=== PATIENT | male | born 1945 | race Caucasian/White ===

== ENCOUNTER 2020-12-11 07:18 | Day surgery (SDC) | payer OTHER, MEDICARE ==
--- NOTE | 2020-12-06 16:20 | RAD REPORT ---
EXAM DESCRIPTION: Grayson Mcgraw (2 Views)12/06/2020 4:13 pm CLINICAL HISTORY: Preop/abdominal pain COMPARISON: None FINDINGS: The lungs appear clear of acute infiltrate. The heart is normal size IMPRESSION: No acute abnormalities displayed
[2020-12-06 16:43] LABS: Absolute Lymphocytes (CBC) 2.4 K/uL (0.7-4.9); Basophils % 0.4 % (0-1.3); Hematocrit 40.7 % (39.6-49.0); Lymphocytes % 31.5 % (15.3-44.8); MPV 9.1 fL (7.6-11.3); RBC Red Blood Cell Count 4.48 M/uL (4.33-5.43)
[2020-12-06 16:49] LABS: Potassium 4.9 mmol/L (3.5-5.1)
[2020-12-06 19:17] LABS: Protime INR 1.03
--- NOTE | 2020-12-07 14:11 | EKG ---
Test Date: 2020-12-06 Test Time: 16:01:15 Foot Doctor: CASS MEASUREMENT RESULTS: Intervals: Rate: 59 AL: 222 QRSD: 104 QT: 400 QTc: 396 [place]: P: 36 AL: 222 QRS: -34 T: 58 INTERPRETIVE STATEMENTS: Sinus bradycardia with 1st degree AV block with premature atrial complexes Left axis deviation Pulmonary disease pattern Incomplete right bundle branch block Abnormal ECG Compared to ECG 07/07/2016 13:17:52 Atrial premature complex(es) now present First degree AV block now present Incomplete right bundle-branch block now present Electronically Signed On 12-07-20 14:09:07 REAL ESTATE TEACHER by Abimael Mejía
[2020-12-11] MEDS ORDERED: CEFAZOLIN/SWI 2gm 2 GM/20 ML SYR ONE (08:07)
[2020-12-11] MEDS ORDERED: NA CHLORIDE 0.9% 1,000 ML ONE ×2 (08:07→11:01)
[2020-12-11] MEDS ORDERED: propofoL 200 MG/20 ML VIAL IV ONE (08:27)
[2020-12-11] MEDS ORDERED: FENTANYL CITR 100 MCG/2 ML ONE (08:27)
[2020-12-11] MEDS ORDERED: LIDOCAINE 1% MPF 5 ML VIAL ONE (08:28)
[2020-12-11] MEDS ORDERED: ONDANSETRON 4 MG/2 ML VIAL ONE (08:28)
[2020-12-11] MEDS ORDERED: EPHEDRINE SULF 50 MG/ML VIAL ONE (10:44)
[2020-12-11] MEDS ORDERED: GLYCOPYRROLATE 0.2 MG/ML SYR ONE (11:33)
[2020-12-11 12:04] VITALS: TEMP 96.9
--- NOTE | 2020-12-11 13:02 | OP ---
Surgeon: SARAHI ESPARZA Preoperative Diagnosis: Left 14 mm nephrolithiasis. Postoperative Diagnosis: Left 14 mm nephrolithiasis. Principle Procedure: 1.Cystoscopy, left ureteral stent placement. 2.Left extracorporeal shock wave lithotripsy. Indication For Procedure: Mr. Mayes presented to the Urology Clinic with intermittent recurrent jes ss hematuria associated with the presence of a very large left renal calculus. No intravesical lesio n was noted or other intrarenal filling defect on imaging; so he was counseled as to the benefit of E SWL to attempt to fragment. The calculus and decreases risk of future renal injury and potentially r ecurrent gross hematuria. Procedure In Detail: The patient was consented in the preoperative holding area before being transfe rred to the operative suite where general anesthesia was induced. He was given Ancef 2 g, IV antimic robial prophylaxis, and pneumo boots were provided for DVT prophylaxis. He was placed in the lithoto my position, padded and secured to the table appropriately. His genitalia were prepped using Hibicle ns, and he was draped in standard fashion. The case was begun using a 22-Austrian rigid cystoscope to traverse the urethra and into the bladder with ease. Using a 5-Austrian ureteral access catheter and a Sensor wire, the left ureteral orifice was cannulated and a wire was advanced via the ureter into th e upper pole of the kidney as visualized fluoroscopically alongside, the radiopaque 14 mm calculus in the renal pelvis. I was then able to pass a 6-Austrian x 26 cm double-J left ureteral stent over the wire into the upper pole of the kidney with a coil observed fluoroscopically there and 1 cystoscopica lly within the bladder. His bladder was then decompressed of fluid and urine, and the scope was kavon maryjane. He was then repositioned and fluoroscopic targeting of the stone was then performed before init iating shockwave lithotripsy. Left ESWL: Initiating the shocks at low power settings and slowly increasing the power over the cour se of approximately 400-500 shocks, shockwave lithotripsy was initiated. The patient had some ventri cular ectopy associated with the shockwave lithotripsy and so he was then gated to the EKG 2 time tracee cks with his heart rate. Once this was done, the ectopy resolved and the shockwave lithotripsy brayan nued. Over the course of the next 1000 shocks, there was some evident fragmentation of the stone wit h decrease in the diameter of stone burden remaining within the kidney. However, a core of the stone approximately 8 or 9 mm was still evident. As a result, retargeting was performed and we continued to increase the power up to 7.0, and continued to stop the stone to further attempt to fragmented. T here was significant dissolution of the stone. While at the end of the procedure, there was still a slight density present, probably 5-6 mm in diameter. The patient was then awakened from general anes thesia, transferred to a stretcher, and then transferred to the recovery room in good condition. Complications: No complications were evident. Discharge Disposition: He will follow up in the Urology Clinic with nurse practitioner, [place] in approximately 2 weeks time and I have asked him to obtain a KUB 1-2 days prior to assess for visibili ty of stone burden. I further asked him to strain his urine to see if he collect any stone dust joyce gnizing that much of it may not pass until after the stent was removed. Once the stone is evidently fragmented with no significant residual stone burden in the kidney, i.e, no stone larger than 4 or 5 mm remnant, he should then return to [place] for cystoscopy and left ureteral stent extraction in the offi ce. If significant residual stone density is present, we may need to plan definitive ureteroscopy an d laser lithotripsy to clear him of the stone burden. I would likely only do this for a stone larger than about 4 mm size in diameter. KARIE/MODL Voice ID: [id number] Report ID: [id number]
[2020-12-11 13:05] VITALS: BP 143/74; O2SAT 97
== END 2020-12-11 12:40 | disposition home or self-care (01) ==
LOC: OR 07:18
PROVIDERS: ATTEND Urology
PROC: 0T778DZ Dilation of Left Ureter with Intraluminal Device, Via Natural or Artificial Opening Endoscopic (ICD-10-PCS; 2020-12-11)
PROC: 0TF7XZZ Fragmentation in Left Ureter, External Approach (ICD-10-PCS; principal; 2020-12-11 09:00)
DX: N20.0 Calculus of kidney (principal); Z20.822 Contact with and (suspected) exposure to COVID-19
CPT/HCPCS: 52332 ×2; 93005; 87088; 85025; 87086; 80048; 36415; 85610; 82947 ×2; 85730; 71046; 50590; U0002; J2704; J3010; J0690; J7030 ×2; J2405

== ENCOUNTER 2020-12-17 16:06 | Emergency (ER) | payer OTHER, MEDICARE ==
--- OUTSIDE RECORDS SUMMARY | 2020-12-17 16:09 | XMS REPORT | Continuity of Care Document ---
:1945 Author Organization [facility] t Address [address] [place] [address] Care Team Providers Name Role Phone Unavailable Unavailable Unavailable Problems This patient has no known problems. Allergies, Adverse Reactions, Alerts This patient has no known allergies or adverse reactions. Medications This patient has no known medications. Procedures This patient has no known procedures. Results This patient has no known results.
[2020-12-17 19:28] LABS: Absolute Lymphocytes (CBC) 2.6 K/uL (0.7-4.9); Basophils % 0.4 % (0-1.3); Hematocrit 46.2 % (39.6-49.0); Lymphocytes % 31.2 % (15.3-44.8); MPV 8.7 fL (7.6-11.3); RBC Red Blood Cell Count 5.07 M/uL (4.33-5.43)
[2020-12-17 19:51] LABS: Albumin 4.2 g/dL (3.4-5.0); Bilirubin Direct 0.2 mg/dL (0-0.2); Bilirubin Total 0.9 mg/dL (0.2-1.0); Protein, Total 7.9 g/dL (6.4-8.2)
[2020-12-17] MEDS ORDERED: NA CHLORIDE 0.9% 500 ML ONE (20:14)
[2020-12-17 20:31] LABS: Urine Bacteria NONE SEEN /HPF (NONE SEEN)
--- NOTE | 2020-12-17 20:32 | RAD REPORT ---
EXAM DESCRIPTION: US - Abdomen Exam Limited - 12/17/2020 8:21 pm CLINICAL HISTORY: elevated lipase COMPARISON: Renal Ultrasound-Complete dated 12/17/2020 FINDINGS: The gallbladder demonstrates no gallstones. No pericholecystic fluid or gallbladder wall t hickening. The common bile duct is normal measuring 2 mm. The liver demonstrates no findings of intrahepatic biliary dilatation. IMPRESSION: Unremarkable examination.
[2020-12-17 20:42] LABS: Urine Blood 2+ (NEG); Urine Glucose NEGATIVE (NEG); Urine Protein NEGATIVE (NEG)
--- NOTE | 2020-12-17 21:04 | RAD REPORT ---
EXAM DESCRIPTION: CTAbdomen Pelvis W Contrast - 12/17/2020 8:42 pm CLINICAL HISTORY: Abdominal pain. ABD PAIN COMPARISON: <Comparisons> TECHNIQUE: Biphasic CT imaging of the abdomen and pelvis was performed with 100 ml non-ionic IV cont rast. All CT scans are performed using dose optimization technique as appropriate and may include automated exposure control or mA/KV adjustment according to patient size. FINDINGS: The lung bases are clear. The liver, spleen, pancreas, adrenal glands are within normal limits. Bilateral renal cysts are seen. Small calculi are present in calices of both kidneys. Left double-J s tent is place. Small 4 mm calculus is present along the distal aspect of the stent. Additional calcif ied debris is present in the distal aspect of the left ureter along the stent. There is slight fat st randing seen about the left renal pelvis. No bowel obstruction, free air, free fluid or abscess. Sigmoid diverticulosis coli is present without diverticulitis. The appendix is normal. No evidence of significant lymphadenopathy. No suspicious bony findings. IMPRESSION: Left double-J stent is in place with small calcific stone and debris along the distal le ft ureter course of the stent. Subtle fat stranding is seen about the renal pelvis. Urinalysis correl ation for is a possibility urinary tract infection is suggested. Additional bilateral punctate caliceal nephrolithiasis.
--- NOTE | 2020-12-17 21:26 | EDPHYS ---
Physician Documentation [facility] Name: Petar Mayes Age: 74 yrs Sex: Male : 1945 Arrival Date: 12/17/2020 Time: 16:09 Bed 26 Private MD: Don Rivas B ED Physician Piero Heard HPI: 12/17 19:12 This 74 yrs old Male presents to ER via Ambulatory with complaints of pm1 Abnormal Lab Results. 19:12 Patient instructed to report to the ER for further evaluation and treatment of abnormal pm1 labs drawn by his urologist this afternoon. Patient with lithotripsy [address] Ghosh. Reports since the lithotripsy, the patient has felt fatigued and with generalized weakness. Dr. Ghosh had some labs drawn today at this hospital and called the patient to report to the ER for possible pancreatitis. The patient does not have any abdominal pain, back pain, chest pain, shortness of breath, fever, n/v/d. Historical: - Allergies: 16:23 No Known Drug Allergies; ll1 - Home Meds: 19:31 levothyroxine oral [Active]; lisinopril 10 mg Oral tab 1 tab once daily [Active]; sf Metformin Oral [Active]; Simvastatin Oral [Active]; - PMHx: 16:23 Diabetes - NIDDM; Hyperlipidemia; Hypertension; Kidney stones; TIA; ll1 19:31 Hypothyroidism; sf - PSHx: 16:23 Lithotripsy; ll1 - Immunization history:: Flu vaccine is up to date. - Social history:: Smoking status: Patient denies any tobacco usage or history of. ROS: 19:12 Cardiovascular: Negative for chest pain, palpitations, and edema, Respiratory: Negative pm1 for shortness of breath, cough, wheezing, and pleuritic chest pain. 19:12 Back: Negative for injury and pain, : Negative for injury, bleeding, discharge, and swelling, MS/Extremity: Negative for injury and deformity, Skin: Negative for injury, rash, and discoloration. 19:12 Constitutional: Positive for fatigue, Negative for body aches, chills, poor PO intake. 19:12 Abdomen/GI: Negative for abdominal pain, nausea, vomiting, and diarrhea, constipation. 19:12 Neuro: Positive for generalized weakness, Negative for headache, numbness, tingling, focal weakness. Exam: 19:12 Constitutional: This is a well developed, well nourished patient who is awake, alert, pm1 and in no acute distress. Head/Face: Normocephalic, atraumatic. 19:12 Back: No spinal tenderness. No costovertebral tenderness. Full range of motion. Skin: Warm, dry with normal turgor. Normal color with no rashes, no lesions, and no evidence of cellulitis. MS/ Extremity: Pulses equal, no cyanosis. Neurovascular intact. Full, normal range of motion. 19:12 Cardiovascular: Exam negative for acute changes, Rate: normal, Rhythm: regular, Pulses: no pulse deficits are appreciated, Edema: is not appreciated. 19:12 Respiratory: Exam negative for acute changes, respiratory distress, shortness of breath. 19:12 Abdomen/GI: Inspection: abdomen appears normal, Palpation: abdomen is soft and non-tender, in all quadrants, mass, is not appreciated. 19:12 Neuro: Exam negative for acute changes, Orientation: is normal, Mentation: is normal, Motor: is normal, moves all fours. Vital Signs: 16:19 BP 152 / 89; Pulse 70; Resp 16; Temp 97.2; Pulse Ox 100% ; Weight 84.82 kg; Height 5 ll1 ft. 9 in. (175.26 cm); Pain 2/10; 20:00 BP 173 / 119; Pulse 82; Resp 16; Pulse Ox 100% ; sf 16:19 Body Mass Index 27.61 (84.82 kg, 175.26 cm) ll1 MDM: 19:15 Patient medically screened. lindsey 20:58 Data reviewed: vital signs. Data interpreted: Pulse oximetry: on room air is 100 %. pm1 Interpretation: normal. 21:24 Counseling: I had a detailed discussion with the patient and/or guardian regarding: the pm1 historical points, exam findings, and any diagnostic results supporting the discharge/admit diagnosis, lab results, radiology results, the need for outpatient follow up, to return to the emergency department if symptoms worsen or persist or if there are any questions or concerns that arise at home. 21:24 ED course: Patient does not want a COVID or flu test here in the ER that may explain pm1 his fatigue and generalized weakness. He does not want it because he had a negative covid test recently for his lithotripsy procedure. . 21:28 ED course: Patient's lipase from 1452 today was 1472. Current lipase is 785. Lipase pm1 improved markedly without intervention. Patient without any pain to chest, back, abdomen or flank. Pancreas within normal limits on CT and gallbladder and biliary ducts within normal limits on U/S. No UTI present and patient is currently taking abx from [place]. Patient can be discharged home to follow up with PCP or urologist. 12/17 19:08 Order name: Basic Metabolic Panel; Complete Time: 20:16 pm1 12/17 19:08 Order name: CBC with Diff; Complete Time: 20:16 pm1 12/17 19:08 Order name: Hepatic Function; Complete Time: 20:16 pm1 12/17 19:08 Order name: Lipase; Complete Time: 20:16 pm1 12/17 19:18 Order name: Urine Microscopic Only; Complete Time: 20:36 pm1 12/17 20:34 Order name: Urine Dipstick--Ancillary (enter results); Complete Time: 20:49 [facility] 12/17 19:08 Order name: IV Saline Lock; Complete Time: 19:23 pm1 12/17 19:08 Order name: Labs collected and sent; Complete Time: 19:23 pm1 12/17 19:08 Order name: CT Abd/Pelvis - IV Contrast Only; Complete Time: 21:06 pm1 12/17 19:24 Order name: US Abdomen Limited; Complete Time: 20:36 pm1 12/17 20:43 Order name: Urine Culture [facility] 12/17 19:18 Order name: Urine Dipstick-Ancillary (obtain specimen); Complete Time: 20:05 pm1 Administered Medications: 19:14 CANCELLED (Physician Discretion): morphine 4 mg IVP once; RASS on ADMIN: Combtv4, Very pm1 Agttd3, Agttd2, Rstlss1, AlertClm0, Drwsy-1, Lt Sdtn-2, Mod Sdtn-3, Dp Sdtn-4, UnArsble-5 19:14 CANCELLED (Physician Discretion): Zofran (Ondansetron) 4 mg IVP once; over 2 minutes pm1 19:58 Drug: NS 0.9% 500 ml Route: IV; Rate: bolus; Site: right antecubital; sf 21:00 Follow up: IV Status: Completed infusion; IV Intake: 500ml sf 21:29 Follow up: Response: No adverse reaction sf Disposition: 12/18 06:44 Co-signature as Attending Physician, Piero Heard MD I agree with the assessment and [facility] plan of care. Disposition: 12/17/20 21:25 Discharged to Home. Impression: Abnormal findings on examination of blood, without diagnosis. - Condition is Stable. - Medication Reconciliation Form, Thank You Letter, Antibiotic Education, Prescription Opioid Use form. - Follow up: Emergency Department; When: As needed; Reason: Worsening of condition. Follow up: Private Physician; When: 2 - 3 days; Reason: Recheck today's complaints, Continuance of care, Re-evaluation by your physician. - Problem is new. - Symptoms have improved. Signatures: Dispatcher [employer] Piero Villatoro, Ryan Messer MD, cha, REGISTERED DIET TECHNICIAN REGISTERED DIET TECHNICIAN pm1 Cesilia Conti RN RN 1 Leandro Coleman RN RN sf Corrections: (The following items were deleted from the chart) 12/17 19:14 19:08 morphine 4 mg IVP once; RASS on ADMIN: Combtv4, Very Agttd3, Agttd2, Rstlss1, pm1 AlertClm0, Drwsy-1, Lt Sdtn-2, Mod Sdtn-3, Dp Sdtn-4, UnArsble-5 ordered. pm1 19:14 19:08 Zofran (Ondansetron) 4 mg IVP once; over 2 minutes ordered. pm1 pm1 21:28 21:25 12/17/2020 21:25 Discharged to Home. Impression: Other specified abnormal pm1 findings of blood chemistry. Condition is Stable. Forms are Medication Reconciliation Form, Thank You Letter, Antibiotic Education, Prescription Opioid Use. Follow up: Emergency Department; When: As needed; Reason: Worsening of condition. Follow up: Private Physician; When: 2 - 3 days; Reason: Recheck today's complaints, Continuance of care, Re-evaluation by your physician. Problem is new. Symptoms have improved. pm1 21:38 21:28 12/17/2020 21:25 Discharged to Home. Impression: Abnormal findings on examination sf of blood, without diagnosis. Condition is Stable. Forms are Medication Reconciliation Form, Thank You Letter, Antibiotic Education, Prescription Opioid Use. Follow up: Emergency Department; When: As needed; Reason: Worsening of condition. Follow up: Private Physician; When: 2 - 3 days; Reason: Recheck today's complaints, Continuance of care, Re-evaluation by your physician. Problem is new. Symptoms have improved. pm1
--- NOTE | 2020-12-17 21:26 | ER ---
Nurse's Notes [facility] Name: Petar Mayes Age: 74 yrs Sex: Male : 1945 Arrival Date: 12/17/2020 Time: 16:09 Bed 26 Private MD: Don Rivas B Diagnosis: Abnormal findings on examination of blood, without diagnosis Presentation: 12/17 16:19 Chief complaint: Patient states: Hasn't been feeling well since last after ll1 lithotripsy. Had blood drawn today for fatigue, weakness, just not feeling well since. Had blood drawn through his doctor today, was told to come to ED for possible pancreatitis. Coronavirus screen: Client denies travel out of the [place] in the last 14 days. At this time, the client does not indicate any symptoms associated with coronavirus-19. Ebola Screen: Patient denies travel to an Ebola-affected area in the 21 days before illness onset. Initial Sepsis Screen: Does the patient meet any 2 criteria? No. Patient's initial sepsis screen is negative. Does the patient have a suspected source of infection? No. Patient's initial sepsis screen is negative. Risk Assessment: Do you want to hurt yourself or someone else? Patient reports no desire to harm self or others. Onset of symptoms was December 11, 2020. 16:19 Method Of Arrival: Ambulatory [facility] 16:19 Acuity: GENNARO 3 ll1 Historical: - Allergies: 16:23 No Known Drug Allergies; ll1 - Home Meds: 19:31 levothyroxine oral [Active]; lisinopril 10 mg Oral tab 1 tab once daily [Active]; sf Metformin Oral [Active]; Simvastatin Oral [Active]; - PMHx: 16:23 Diabetes - NIDDM; Hyperlipidemia; Hypertension; Kidney stones; TIA; ll1 19:31 Hypothyroidism; sf - PSHx: 16:23 Lithotripsy; ll1 - Immunization history:: Flu vaccine is up to date. - Social history:: Smoking status: Patient denies any tobacco usage or history of. Screenin:10 Abuse screen: Denies threats or abuse. Denies injuries from another. Nutritional sf screening: No deficits noted. Tuberculosis screening: No symptoms or risk factors identified. Never had TB. Possible symptoms: None Risk factors: None. Fall Risk None identified. No fall in past 12 months (0 pts). No secondary diagnosis (0 pts). IV access (20 points). Ambulatory Aid- None/Bed Rest/Nurse Assist (0 pts). Gait- Normal/Bed Rest/Wheelchair (0 pts) Mental Status- Oriented to own ability (0 pts). Total Davila Fall Scale indicates No Risk (0-24 pts). Assessment: 19:10 General: Appears in no apparent distress. comfortable, Behavior is calm, cooperative, sf appropriate for age, Denies feeling ill. Pain: Denies pain. Neuro: No deficits noted. Level of Consciousness is awake, alert, obeys commands, Oriented to person, place, time, situation. Cardiovascular: No deficits noted. Patient's skin is warm and dry. Respiratory: No deficits noted. Airway is patent Respiratory effort is even, unlabored, Respiratory pattern is regular, symmetrical. GI: No deficits noted. Abdomen is non-distended, Patient currently denies abdominal pain, diarrhea, nausea, vomiting. : Reports burning with urination, due to renal stent. Vital Signs: 16:19 BP 152 / 89; Pulse 70; Resp 16; Temp 97.2; Pulse Ox 100% ; Weight 84.82 kg; Height 5 ll1 ft. 9 in. (175.26 cm); Pain 2/10; 20:00 BP 173 / 119; Pulse 82; Resp 16; Pulse Ox 100% ; sf 16:19 Body Mass Index 27.61 (84.82 kg, 175.26 cm) ll1 ED Course: 16:09 Patient arrived in ED. mr 16:10 Don Rivas MD is Private Physician. mr 16:23 Triage completed. ll1 16:24 Arm band placed on. ll1 19:05 Ryan Cole NP is PHCP. pm1 19:05 Piero Heard MD is Attending Physician. pm1 19:09 Leandro Coleman RN is Primary Nurse. sf 19:10 Patient has correct armband on for positive identification. Bed in low position. Call sf light in reach. Pulse ox on. NIBP on. Door closed. Noise minimized. Visitors limited. Verbal reassurance given. 19:15 Initial lab(s) drawn, by me, sent to lab. Inserted saline lock: 20 gauge in right sf antecubital area, using aseptic technique. Blood collected. 20:00 Urine collected: clean catch specimen, clear. sf 20:15 US Abdomen Limited Sent. sf 20:22 US Abdomen Limited In Process Unspecified. EDMS 20:41 CT Abd/Pelvis - IV Contrast Only In Process Unspecified. EDMS 21:29 No provider procedures requiring assistance completed. sf 21:38 IV discontinued, intact, bleeding controlled, No redness/swelling at site. Pressure sf dressing applied. Administered Medications: 19:14 CANCELLED (Physician Discretion): morphine 4 mg IVP once; RASS on ADMIN: Combtv4, Very pm1 Agttd3, Agttd2, Rstlss1, AlertClm0, Drwsy-1, Lt Sdtn-2, Mod Sdtn-3, Dp Sdtn-4, UnArsble-5 19:14 CANCELLED (Physician Discretion): Zofran (Ondansetron) 4 mg IVP once; over 2 minutes pm1 19:58 Drug: NS 0.9% 500 ml Route: IV; Rate: bolus; Site: right antecubital; sf 21:00 Follow up: IV Status: Completed infusion; IV Intake: 500ml sf 21:29 Follow up: Response: No adverse reaction sf Intake: 21:00 IV: 500ml; Total: 500ml. sf Outcome: 21:25 Discharge ordered by MD. pm1 21:38 Discharged to home ambulatory. sf 21:38 Condition: stable 21:38 Discharge instructions given to patient, Instructed on discharge instructions, follow up and referral plans. Demonstrated understanding of instructions, follow-up care. 21:38 Patient left the ED. sf Signatures: Dispatcher [employer] [facility] Diamond Mosquera DouglasRyan, SHIRT IRONER SHIRT IRONER pm1 Cesilia Conti, GARY RN ll1 Leandro Coleman, GARY RN sf Corrections: (The following items were deleted from the chart) 16:48 16:19 Pulse 70bpm; Resp 16bpm; Pulse Ox 100%; Temp 97.2F; 84.82 kg; Height 5 ft. 9 in.; ll1 BMI: 27.6; Pain 2/10; ll1 21:29 21:28 IV Status: Completed infusion; IV Intake: 500ml sf sf
[2020-12-17 22:09] VITALS: TEMP 97.2; O2SAT 100
[2020-12-17 22:10] VITALS: BP 173/119
== END 2020-12-17 21:38 | disposition home or self-care (01) ==
LOC: ER 16:06
DX: R79.9 Abnormal finding of blood chemistry, unspecified (principal); Z98.890 Other specified postprocedural states; I10 Essential (primary) hypertension; E11.9 Type 2 diabetes mellitus without complications; E03.9 Hypothyroidism, unspecified; E78.5 Hyperlipidemia, unspecified
CPT/HCPCS: 87088; 85025; 87086; 80048; 36415; 80076; 83690; 74177; 76705; 96360; 99284; Q9967; J7040; 81003; 81015

== ENCOUNTER 2024-02-19 04:09 | Observation (INO) | payer MEDICARE, OTHER ==
[2024-02-19] MEDS ORDERED: DIPHENHYDRAMINE 50 MG/ML VIAL ONE (04:26)
[2024-02-19] MEDS ORDERED: METOCLOPRAMIDE 10 MG/2mL INJ ONE (04:26)
[2024-02-19 04:55] LABS: Absolute Eosinophils 0.1 K/uL (0-0.5); Absolute Lymphocytes (CBC) 1.3 K/uL (0.7-4.9); Absolute Monocytes 0.5 K/uL (0.1-1.3); Absolute Neutrophil 5.2 K/uL (1.8-8.0); Basophils % 0.3 % (0-1.3); Eosinophils % 0.7 % (0-4.4); Hemoglobin 12.3 g/dL (13.6-17.9); Lymphocytes % 17.9 % (15.3-44.8); MCH 30.9 pg (27.0-35.0); MCHC 34.1 g/dL (32.0-36.0); MCV 90.8 fL (80-100); MPV 7.9 fL (7.6-11.3); Monocytes % 6.5 % (3.3-12.3); Neutrophils % 74.6 % (41.7-73.7); Platelets 124 thou/uL (152-406); RBC Red Blood Cell Count 3.96 M/uL (4.33-5.43); Red Cell Distribution Width 14.4 % (12.1-15.2)
[2024-02-19 05:14] LABS: PT Prothrombin Time 13.5 SECONDS (9.5-12.5); PTT, Activated Partial Thromb 32.3 SECONDS (24.3-36.9); Protime INR 1.23
[2024-02-19 05:17] LABS: Albumin 3.2 g/dL (3.4-5.0); Albumin/Globulin Ratio 1.3 (1.1-1.8); Anion Gap 10.4 mEq/L (5.0-15.0); Bilirubin Direct 0.2 mg/dL (0-0.2); Bilirubin Indirect, Calculated 0.4 mg/dL (0.2-0.8); Bilirubin Total 0.6 mg/dL (0.2-1.0); Globulin 2.5 g/dL (2.3-3.5); Magnesium 1.7 mg/dL (1.6-2.4); Potassium 3.4 mEq/L (3.5-5.1); Protein, Total 5.7 g/dL (6.4-8.2); Troponin High Sensitivity 19.9 pg/mL (<58.9)
[2024-02-19] MEDS ORDERED: Magnesium Sulfate 2gm IVPB 2 G/50 ML BAG IV ONE (05:53)
[2024-02-19] MEDS ORDERED: MECLIZINE HCL 12.5 MG TAB ONE (05:53)
[2024-02-19] MEDS ORDERED: ASPIRIN 81 MG CHEWABLE TABLET ONE (05:53)
--- NOTE | 2024-02-19 07:00 | EDPHYS ---
Physician Documentation [facility] Name: Petar Mayes Age: 78 yrs Sex: Male : 1945 Arrival Date: 02/19/2024 Time: 04:09 Bed 7 Private MD: ED Physician Paul Iverson HPI: 02/18 04:22 This 78 yrs old Male presents to ER via EMS with complaints of Dizziness. rt 04:22 Patient presents to the ED with dizziness, headache. Patient went to bed at about 9 PM rt feeling well. Patient states that he woke up with a sensation of the room spinning as well as nausea and vomiting and a generalized headache. Patient was reportedly listing to the left side, he has difficulty maintaining his balance. Denies other acute complaints at this time, symptoms are moderate in severity, no other aggravating or alleviating factors.. Historical: - Allergies: 04:19 No Known Allergies; cm10 - PMHx: 04:19 Diabetes - NIDDM; Hyperlipidemia; Hypertension; Hypothyroidism; Kidney stones; TIA; cm10 - Immunization history:: Adult Immunizations up to date. - Infectious Disease History:: Denies. - Social history:: Smoking status: Patient denies any tobacco usage or history of. ROS: 04:23 Constitutional: Negative for fever, chills, and weight loss, Cardiovascular: Negative rt for chest pain, palpitations, and edema, Back: Negative for injury and pain, MS/Extremity: Negative for injury and deformity, Skin: Negative for injury, rash, and discoloration, 04:23 Respiratory: Positive for 04:23 Abdomen/GI: Positive for nausea, Negative for abdominal pain, 04:23 Neuro: Positive for dizziness, Negative for altered mental status, Exam: 04:23 Constitutional: This is a well developed, well nourished patient who is awake, alert, rt and in no acute distress. Chest/axilla: Normal chest wall appearance and motion. Nontender with no deformity. No lesions are appreciated. Cardiovascular: Regular rate and rhythm with a normal S1 and S2. No gallops, murmurs, or rubs. Normal PMI, no JVD. No pulse deficits. Respiratory: Lungs have equal breath sounds bilaterally, clear to auscultation and percussion. No rales, rhonchi or wheezes noted. No increased work of breathing, no retractions or nasal flaring. Abdomen/GI: Soft, non-tender, with normal bowel sounds. No distension or tympany. No guarding or rebound. No evidence of tenderness throughout. Skin: Warm, dry with normal turgor. Normal color with no rashes, no lesions, and no evidence of cellulitis. 04:23 Eyes: 2-3 beats of left going nystagmus, abnormal head impulse, test of skew unremarkable. No visual field deficits. 04:23 Neuro: Speech normal, cranial nerves II through XII intact, strength and sensation intact in upper and lower extremities. Ataxia noted on left [id number], right luowoc-pf-loth is intact., 05:02 ECG was reviewed by the Attending Physician. rt Vital Signs: 04:16 BP 150 / 79; Pulse 60; Resp 16; Temp 97.5; Pulse Ox 98% on R/A; Weight 83.91 kg (R); cm10 Height 5 ft. 9 in. ; Pain 10/10; 05:00 BP 142 / 86; Pulse 58; Resp 15 S; Pulse Ox 99% on R/A; jw7 06:30 BP 130 / 67; Pulse 53; Resp 17 S; Pulse Ox 97% on R/A; jw7 08:00 BP 134 / 71; Pulse 49; Resp 12; Pulse Ox 99% ; bp 04:16 Body Mass Index 27.32 (83.91 kg, 175.26 cm) cm10 04:16 Pain Scale: Adult cm10 NIH Stroke Scale Scores: 05:08 NIHSS Score: 2 jw7 MDM: 04:12 Patient medically screened. rt 02/18 04:13 Order name: Basic Metabolic Panel; Complete Time: 05:18 rt 02/18 04:13 Order name: CBC with Diff; Complete Time: 05:18 rt 02/18 04:13 Order name: Hepatic Function; Complete Time: 05:18 rt 02/18 04:13 Order name: High Sensitivity Troponin; Complete Time: 05:18 rt 02/18 04:13 Order name: Magnesium; Complete Time: 05:18 rt 02/18 04:13 Order name: Protime (+inr); Complete Time: 05:18 rt 02/18 04:13 Order name: Ptt, Activated; Complete Time: 05:18 rt 02/18 05:17 Order name: Glucose, Ancillary Testing; Complete Time: 05:18 EDMS 10 08:28 Order name: Basic Metabolic Panel EDMS 05/10 08:28 Order name: Basic Metabolic Panel EDMS 0510 08:28 Order name: Basic Metabolic Panel EDMS 0510 08:28 Order name: Basic Metabolic Panel EDMS 0510 08:28 Order name: Basic Metabolic Panel EDMS 05/10 08:28 Order name: Basic Metabolic Panel EDMS 05/10 08:28 Order name: CBC with Automated Diff EDMS 05/10 08:28 Order name: CBC with Automated Diff EDMS 05/10 08:28 Order name: CBC with Automated Diff EDMS 05/10 08:28 Order name: CBC with Automated Diff EDMS 05/10 08:28 Order name: CBC with Automated Diff EDMS 05/10 08:28 Order name: CBC with Automated Diff EDMS 05/10 08:28 Order name: Magnesium EDMS 05/10 08:28 Order name: Magnesium EDMS 0510 08:28 Order name: Magnesium EDMS 05/10 08:28 Order name: Magnesium EDMS 0510 08:28 Order name: Magnesium EDMS 05/10 08:28 Order name: Magnesium EDMS 0510 08:28 Order name: Phosphorus EDMS 05/10 08:28 Order name: Phosphorus EDMS 05/10 08:28 Order name: Phosphorus EDMS 05/10 08:28 Order name: Phosphorus EDMS 05/10 08:28 Order name: Phosphorus EDMS 05/10 08:28 Order name: Phosphorus EDMS 05/10 08:28 Order name: Troponin High Sensitivity EDMS 05/10 08:28 Order name: Troponin High Sensitivity EDMS 0510 08:28 Order name: Troponin High Sensitivity EDMS 05/10 04:13 Order name: CT Head Angio rt 02/18 04:13 Order name: CT Neck Angio rt 02/18 04:13 Order name: CT Stroke Brain w/o Contrast rt 02/18 04:13 Order name: Stroke CXR 1 View rt 02/18 04:13 Order name: Accucheck; Complete Time: 05:07 rt 02/18 04:13 Order name: Cardiac monitoring; Complete Time: 04:42 rt 02/18 04:13 Order name: EKG - Nurse/Tech; Complete Time: 04:54 rt 02/18 04:13 Order name: IV Saline Lock; Complete Time: 04:42 rt 02/18 04:13 Order name: Labs collected and sent; Complete Time: 04:56 rt 02/18 04:13 Order name: NPO; Complete Time: 04:22 rt 02/18 04:13 Order name: O2 Per Protocol; Complete Time: 04:42 rt 02/18 04:13 Order name: O2 Sat Monitoring; Complete Time: 04:42 rt 02/18 04:13 Order name: Stroke Swallow Screen; Complete Time: 05:08 rt EC:02 Rate is 60 beats/min. Rhythm is regular, 1st Degree Block with No ectopy, PACs, Right rt bundle branch block. Left axis deviation noted. ND interval is prolonged at 274 msec. QRS interval is normal. QT interval is normal. No Q waves. No ST changes noted. Administered Medications: 04:56 Drug: metoCLOPramide IVP 10 mg IVP once; over 1 to 2 minutes Route: IVP; Site: right [facility] antecubital; 06:39 Follow up: Response: No adverse reaction [facility] 04:56 Drug: diphenhydrAMINE IVP 25 mg IVP once Route: IVP; Site: right antecubital; jw7 06:39 Follow up: Response: No adverse reaction jw 05:59 Drug: Magnesium Sulfate IVPB 2 grams IVPB once over 2 hrs Route: IVPB; Infused Over: 2 lg3 hrs; Site: right antecubital; 08:47 Follow up: IV Status: Completed infusion; IV Intake: 100ml bp 05:59 Drug: Aspirin PO Chewable Tablet 243 mg PO once; 81 mg tablets x 3 Route: PO; lg3 08:47 Follow up: Response: No adverse reaction bp 05:59 Drug: Meclizine PO 50 mg PO once Route: PO; lg3 08:47 Follow up: Response: No adverse reaction bp Disposition Summary: 02/19/24 08:37 Hospitalization Ordered Notes: Hospitalization Status: Inpatient Admission ec2 Provider: Elias Medina Location: Telemetry/MedSurg (Inpatient) ec2 Condition: Stable(02/19/24 08:37) ec2 Problem: new(02/19/24 08:37) ec2 Symptoms: have improved(02/19/24 08:37) ec2 Bed/Room Type: Standard ec2 Room Assignment: 217(02/19/24 08:42) eb Diagnosis - Vertigo ec2 Forms: - Medication Reconciliation Form ec2 - SBAR form ec2 - Leadership Thank You Letter ec2 NIH Stroke Scale - NIH Stroke Score Date: 02/19/2024 Time: 05:08 Total Score = 2 10. Dysarthria (speech clarity - read or repeat words) - 0(Normal) 11. Extinction and Inattention (visual/tactile/auditory/spatial/personal) - 0(No abnormality) 1a. Level of Consciousness (LOC) - 0(Alert) 1b. Level of Consciousness (LOC) (Month \T\ Age) - 0(Both) 1c. LOC Commands (Open \T\ Closes Eyes/Stitch Rubber) - 0(Both) 2. Best Gaze (Lateral Gaze Paresis) - 0(Normal) 3. Visual Field Loss - 0(No visual loss) 4. Facial Palsy - 1(Minor Paralysis) 5a. Left Arm: Motor (10-second hold) - 0(No drift) 5b. Right Arm: Motor (10-second hold) - 0(No drift) 6a. Left Leg: Motor (5-second hold - always test supine) - 0(No drift) 6b. Right Leg: Motor (5-second hold - always test supine) - 0(No drift) 7. Limb Ataxia (finger/nose \T\ heel/neri - test with eyes open) - 1(Present in one limb) 8. Sensory Loss (pinprick arms/legs/face) - 0(Normal) 9. Best Language: Aphasia (description/naming/reading) - 0(No aphasia) Initials: jw7 Signatures: Dispatcher [employer] EDWI Nohemi Kennedy Lacie, RN RN lg3 Cathy Chand RN RN jw7 Paul Iverson MD MD rt Macarena Badillo RN RN cm10 Bruce Lindsey MD MD ec2 Saw Olvera RN bp Corrections: (The following items were deleted from the chart) 04:14 04:14 Head Angio+CT.RAD.BRZ ordered. EDMS EDMS 04:14 04:14 Neck Angio+CT.RAD.BRZ ordered. EDMS EDMS 04:14 04:14 CT-STROKE BRAIN W/O CONTRAST+CT.RAD.BRZ ordered. EDMS EDMS 04:14 04:14 Chest Single View+RAD.RAD.BRZ ordered. EDMS EDMS 08:36 07:00 DrTor rt ec2 08:36 07:00 [facility] rt ec2 08:36 07:00 Patient request rt ec2 08:36 07:00 Fair rt ec2 08:36 07:00 new rt ec2 08:36 07:00 are unchanged rt ec2 08:36 07:00 Vertigo, rule out posterior stroke rt ec2 08: 08:37 ec2 eb 08:42 08:41 201 eb eb
--- NOTE | 2024-02-19 07:00 | ER ---
Nurse's Notes [facility] Name: Petar Mayes Age: 78 yrs Sex: Male : 1945 Arrival Date: 02/19/2024 Time: 04:09 Bed 7 Private MD: Diagnosis: Vertigo Presentation: 02/18 04:16 Chief complaint: EMS states: Called to patient's home due to patient being dizzy, cold cm10 sweats and being unbalanced. EMS reports that patient was leaning to the left when being transferred to the EMS stretcher. Pt complaining of headache. Coronavirus screen: Client denies travel out of the [place] in the last 14 days. At this time, the client does not indicate any symptoms associated with coronavirus-19. Ebola Screen: Patient denies travel to an Ebola-affected area in the 21 days before illness onset. No symptoms or risks identified at this time. Initial Sepsis Screen: Does the patient meet any 2 criteria? No. Patient's initial sepsis screen is negative. Does the patient have a suspected source of infection? No. Patient's initial sepsis screen is negative. Risk Assessment: Do you want to hurt yourself or someone else? Patient reports no desire to harm self or others. Onset of symptoms was February 19, 2024. 04:16 Method Of Arrival: EMS: [facility] cm10 04:16 Acuity: GENNARO 2 cm10 04:43 Care prior to arrival: Medication(s) given: Tylenol, 1000 mg, IV initiated. 22 GA, in cm10 the right antecubital area. Triage Assessment: 04:19 General: Appears in no apparent distress. comfortable, Behavior is calm, cooperative, cm10 appropriate for age. Pain: Complains of pain in head. Neuro: No deficits noted. Level of Consciousness is awake, alert, obeys commands, Oriented to person, place, time, situation, Scientific Systems Analyst are equal bilaterally Moves all extremities. Speech is normal, Facial symmetry appears normal, Intact. Respiratory: No deficits noted. Airway is patent Respiratory effort is even, unlabored, Respiratory pattern is regular, symmetrical. Historical: - Allergies: 04:19 No Known Allergies; cm10 - PMHx: 04:19 Diabetes - NIDDM; Hyperlipidemia; Hypertension; Hypothyroidism; Kidney stones; TIA; cm10 - Immunization history:: Adult Immunizations up to date. - Infectious Disease History:: Denies. - Social history:: Smoking status: Patient denies any tobacco usage or history of. Screenin:44 [facility] ED Fall Risk Assessment (Adult) History of falling in the last 3 months, cm10 including since admission No falls in past 3 months (0 pts) Confusion or Disorientation No (0 pts) Intoxicated or Sedated No (0 pts) Impaired Gait Yes (1 pt) Mobility Assist Device Used Yes (1 pt) Altered Elimination No (0 pt) Score/Fall Risk Level 0 - 2 = Low Risk Oriented to surroundings, Maintained a safe environment, Hourly rounding (assess needs \T\ fall precautionary measures) done. Abuse screen: Denies threats or abuse. Denies injuries from another. Nutritional screening: No deficits noted. Tuberculosis screening: No symptoms or risk factors identified. 05:08 Dixie Swallow Protocol Brief Cognitive Screen What is your name? Normal, Where are you jw7 right now? Normal, What year is it? Normal. Oral Mechanism Examination Facial Symmetry: Normal, Motion: Normal, Lip Closure: Normal, Oral Mechanism Result: Normal. 3 oz Water Swallow Challenge: Pt able to drink all water without stopping, coughing, choking or throat clearing: Yes Result: PASS. Assessment: 04:45 General: Appears in no apparent distress. uncomfortable, Behavior is calm, cooperative. jw7 04:45 Pain: Complains of pain in head Pain does not radiate. Pain currently is 8 out of 10 on jw7 a pain scale. Quality of pain is described as pressure, Pain began gradually, Is continuous. Neuro: Level of Consciousness is awake, alert, obeys commands, Oriented to person, place, time, situation. Cardiovascular: Heart tones S1 S2 present Capillary refill < 3 seconds Clubbing of nail beds is absent JVD is absent Patient's skin is warm and dry. Respiratory: Airway is patent Trachea midline Respiratory effort is even, unlabored, Respiratory pattern is regular, symmetrical, Breath sounds are clear bilaterally. GI: Abdomen is flat, non-distended, Bowel sounds present X 4 quads. Abd is soft and non tender X 4 quads. : No deficits noted. No signs and/or symptoms were reported regarding the genitourinary system. EENT: No deficits noted. No signs and/or symptoms were reported regarding the EENT system. Derm: Skin is intact, is healthy with good turgor, Skin is dry, Skin is normal, Skin temperature is warm. Musculoskeletal: Circulation, motion, and sensation intact. Range of motion: intact in all extremities. 05:30 Reassessment: Patient appears in no apparent distress at this time. No changes from jw7 previously documented assessment. Patient and/or family updated on plan of care and expected duration. Pain level reassessed. Patient is alert, oriented x 3, equal unlabored respirations, skin warm/dry/pink. 06:38 Reassessment: Patient appears in no apparent distress at this time. No changes from jw7 previously documented assessment. Patient and/or family updated on plan of care and expected duration. Pain level reassessed. Patient is alert, oriented x 3, equal unlabored respirations, skin warm/dry/pink. 07:00 Reassessment: RECD REPORT FROM FREDDY VEGA. 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 08:00 Reassessment: Patient appears in no apparent distress at this time. Patient is alert, bp oriented x 3, equal unlabored respirations, skin warm/dry/pink. Neuro: Level of Consciousness is awake, alert, obeys commands, Oriented to Appropriate for age Facial droop on left. 08:45 Reassessment: REPORT FAXED FOR ROSALES Jorge NOTIFIED. bp Vital Signs: 04:16 BP 150 / 79; Pulse 60; Resp 16; Temp 97.5; Pulse Ox 98% on R/A; Weight 83.91 kg (R); cm10 Height 5 ft. 9 in. ; Pain 10/10; 05:00 BP 142 / 86; Pulse 58; Resp 15 S; Pulse Ox 99% on R/A; jw7 06:30 BP 130 / 67; Pulse 53; Resp 17 S; Pulse Ox 97% on R/A; jw7 08:00 BP 134 / 71; Pulse 49; Resp 12; Pulse Ox 99% ; bp 04:16 Body Mass Index 27.32 (83.91 kg, 175.26 cm) cm10 04:16 Pain Scale: Adult cm10 NIH Stroke Scale Scores: 05:08 NIHSS Score: 2 7 ED Course: 04:12 Patient arrived in ED. pf1 04:12 Paul Iverson MD is Attending Physician. rt 04:19 Triage completed. cm10 04:20 Arm band placed on Patient placed in an exam room, on a stretcher, on value analysis coordinator, cm10 on pulse oximetry. 04:[address] via stretcher. cm10 04:30 CT Head Angio In Process Unspecified. EDMS 04:42 Patient moved back from CT. cm10 04:43 Inserted saline lock: 20 gauge in left forearm, using aseptic technique. cm10 04:45 Patient has correct armband on for positive identification. Bed in low position. Call cm10 light in reach. Side rails up X2. Client placed on continuous cardiac and pulse oximetry monitoring. NIBP monitoring applied. hand sander on. Pulse ox on. 04:48 CT Neck Angio In Process Unspecified. EDMS 04:48 CT Stroke Brain w/o Contrast In Process Unspecified. EDMS 04:49 Stroke CXR 1 View In Process Unspecified. EDMS 04:54 EKG done, by ED staff, reviewed by Paul Iverson MD. wm 06:51 initiated a transfer with [facility]. eb 07:07 per Josselyn Oreillyist will have to decline the transfer at this time/ they do not have eb any tele beds available/ they ask that we admit the patient upstairs and have them re initiate the transfer once upstairs so they can put the pt on a wait list and take him later. 07:11 Saw Olvera, GARY is Primary Nurse. bp 08:36 Elias Medina MD is Hospitalizing Provider. ec2 08:47 No provider procedures requiring assistance completed. Patient admitted, IV remains in bp place. Administered Medications: 04:56 Drug: metoCLOPramide IVP 10 mg IVP once; over 1 to 2 minutes Route: IVP; Site: right jw7 antecubital; 06:39 Follow up: Response: No adverse reaction jw7 04:56 Drug: diphenhydrAMINE IVP 25 mg IVP once Route: IVP; Site: right antecubital; jw7 06:39 Follow up: Response: No adverse reaction jw7 05:59 Drug: Magnesium Sulfate IVPB 2 grams IVPB once over 2 hrs Route: IVPB; Infused Over: 2 lg3 hrs; Site: right antecubital; 08:47 Follow up: IV Status: Completed infusion; IV Intake: 100ml bp 05:59 Drug: Aspirin PO Chewable Tablet 243 mg PO once; 81 mg tablets x 3 Route: PO; lg3 08:47 Follow up: Response: No adverse reaction bp 05:59 Drug: Meclizine PO 50 mg PO once Route: PO; lg3 08:47 Follow up: Response: No adverse reaction bp Medication: 04:45 VIS not applicable for this client. cm10 Intake: 08:47 IV: 100ml; Total: 100ml. bp Outcome: 07:00 ER care complete, transfer ordered by MD. rt 08:37 Decision to Hospitalize by Provider. ec2 08:46 Admitted to Tele accompanied by tech, family with patient, via wheelchair, room 217, bp with chart, Report called to FAX 08:46 Condition: stable 08:46 Instructed on the need for admit, 09:37 Patient left the ED. bp NIH Stroke Scale - NIH Stroke Score Date: 02/19/2024 Time: 05:08 Total Score = 2 10. Dysarthria (speech clarity - read or repeat words) - 0(Normal) 11. Extinction and Inattention (visual/tactile/auditory/spatial/personal) - 0(No abnormality) 1a. Level of Consciousness (LOC) - 0(Alert) 1b. Level of Consciousness (LOC) (Month \T\ Age) - 0(Both) 1c. LOC Commands (Open \T\ Closes Eyes/Microsoft Infrastructure Consultant) - 0(Both) 2. Best Gaze (Lateral Gaze Paresis) - 0(Normal) 3. Visual Field Loss - 0(No visual loss) 4. Facial Palsy - 1(Minor Paralysis) 5a. Left Arm: Motor (10-second hold) - 0(No drift) 5b. Right Arm: Motor (10-second hold) - 0(No drift) 6a. Left Leg: Motor (5-second hold - always test supine) - 0(No drift) 6b. Right Leg: Motor (5-second hold - always test supine) - 0(No drift) 7. Limb Ataxia (finger/nose \T\ heel/neri - test with eyes open) - 1(Present in one limb) 8. Sensory Loss (pinprick arms/legs/face) - 0(Normal) 9. Best Language: Aphasia (description/naming/reading) - 0(No aphasia) Initials: jw7 Signatures: Dispatcher [employer] EDMS Saw Olvera, RN RN bp Nohemi Kennedy Lacie, RN RN lg3 Radha Sanders Jodi, RN RN jw7 Paul Iverson MD MD rt Gabi Toussaint RN RN pf1 Justino, Macarena, RN RN cm10 Bruce Lindsey MD MD ec2
[2024-02-19 10:47] VITALS: BMI 27.3
[2024-02-19] MEDS: INSULIN REGULAR (HUMAN) 100 UNIT/ML SQ SCH (11:30)
[2024-02-19] MEDS: MORPHINE 4 MG/ML SYR IV PRN (12:19)
[2024-02-19] MEDS: ONDANSETRON 4 MG/2 ML VIAL IV PRN (12:20)
[2024-02-19] MEDS: MECLIZINE HCL 12.5 MG TAB PO SCH (14:04)
[2024-02-19] MEDS: THIAMINE 200 MG/2 ML INJ IVP SCH (14:06)
[2024-02-19] MEDS: FOLIC ACID 1 MG in NA CHLORIDE 0.9% 50 ML IV SCH (14:09)
--- NOTE | 2024-02-19 14:46 | P.CNS ---
Date of Consult: 02/19/24 Chief Complaint: Dizziness History of Present Illness: Patient with PMH of severe aortic stenosis, getting work up at the [facility] for TAVR, presented after he woke up in the middle of the night feeling dizzy, confused and not feeling well, denies any chest pain, no SOB, no palpitations, no syncope. Allergies No Known Drug Allergies Allergy (Verified 02/19/24 10:34) Unknown Home Medications: Levothyroxine Sodium [Unithroid] 50 mcg PO DAILY 09/19/14 Metformin ER [Glucophage ER*] 100 mg PO BEDTIME 09/19/14 Ascorbic Acid [Vitamin C*] 1,000 mg PO DAILY 01/04/15 Atorvastatin Calcium [Lipitor] 40 mg PO BEDTIME 01/04/15 Cholecalciferol (Vitamin D3) [Vitamin D3] 5,000 unit PO DAILY 01/04/15 Docusate Sodium [Stool Softener] 100 mg PO DAILY 12/06/20 Echinacea 900 mg PO DAILY 12/06/20 Fexofenadine HCl [Allergy Relief] 180 mg PO BEDTIME 12/06/20 Gabapentin 100 mg PO BEDTIME 12/06/20 Losartan Potassium 25 mg PO BEDTIME 12/06/20 Vitamin E 400 unit PO DAILY 12/06/20 Aspirin 81 mg PO DAILY 02/19/24 Levothyroxine Sodium 100 mg PO DAILY 02/19/24 - Past Medical/Surgical History Diabetic: Yes -: DVT -leg -: DM -: kidney "boarderline" -: HTN -: hypothyroid -: gabapentin "helps me sleep" -: TIA no residual -: shoulder surg (L) -: kidney stones -: "aortic valve is closing off" being worked up currently 02/19/24 - Family History Father Medical History: Cancer Mother Medical History: Cancer Sister Medical History: Cancer - Social History Alcohol use: Yes CD- Drugs: No Caffeine use: Yes Place of Residence: Home Review of Systems 10-point ROS is otherwise unremarkable Physical Examination Temp Pulse Resp BP Pulse Ox 97.0 F 58 16 145/72 H 99 02/19/24 12:00 02/19/24 12:00 02/19/24 12:49 02/19/24 12:00 02/19/24 12:49 General: Alert, Oriented x3 HEENT: Atraumatic Neck: Supple Respiratory: Clear to auscultation bilaterally Cardiovascular: No edema, Normal S1 S2, Systolic murmur Gastrointestinal: Normal bowel sounds Laboratory Data (last 24 hrs) 02/19/24 02/19/24 02/19/24 04:48 04:48 04:48 WBC 7.00 Hgb 12.3 L Hct 36.0 L Plt Count 124 L PT 13.5 H INR 1.23 APTT 32.3 Sodium 138 Potassium 3.4 L BUN 21 H Creatinine 1.39 H Glucose 153 H Magnesium 1.7 Total Bilirubin 0.6 AST 14 L ALT 17 Alkaline Phosphatase 69 - Problems (1) Aortic stenosis Current Visit: Yes Status: Acute Plan: per last note from patient outside band aid machine operator, patient got critical severe , BISMARK 0.6 cm2 and MG of 57 mmHg. patient is getting worked up for J[facility] at the [facility]. advised to keep following up with band aid machine operator. I do not think his dizziness in the middle of the night is from severe as it will typically cause exertional CP/SOB or dizziness. (2) HTN (hypertension) Current Visit: Yes Status: Acute Plan: patient mention that his BP was low on Losartan, systolic down to 100s, will hold for now and monitor.
--- NOTE | 2024-02-19 17:36 | RAD REPORT ---
EXAM DESCRIPTION: CT - Neck Angio - 02/19/2024 6:53 am ADDENDUM #1 Critical findings were discussed with and acknowledged by Dr. Paul Iverson on 02/19/2024 5:36 AM CD T. Electronically signed by: Prince Davila MD 02/19/2024 05:38 AM CDT End of Addendum CLINICAL HISTORY: STROKE ALERT COMPARISON: None. TECHNIQUE: CT HEAD ANGIOGRAPHY WITH IV CONTRAST, CT NECK ANGIOGRAPHY WITH IV CONTRAST on 02/19/2024 4 :13 AM CDT This exam was performed according to our departmental dose-optimization program, which includes autom ated exposure control, adjustment of the mA and/or kV according to patient size and/or use of iterati ve reconstruction technique. MIP reconstructions were generated. Stenoses are calculated by NASCET criteria. FINDINGS: The visualized aortic arch and origins of the great vessels unremarkable. The common carotid arteries are patent and symmetric bilaterally. No hemodynamically significant stenosis is observed at the common carotid bifurcations or origins of the internal carotid arteries bilaterally. Vertebral arteries are unremarkable without evidence of pseudoaneurysm, hemodynamically significant s tenosis, or dissection. Intracranially the cavernous segments of the internal carotid arteries are patent and symmetric bilat erally. Vertebral basilar system within normal limits for age. No aneurysm identified within the [place]. Anterior, middle, and posterior cerebral circulat ions are patent and symmetric bilaterally. Dural sinuses are well opacified and without filling defect. IMPRESSION: Unremarkable CT angiogram of the neck for age without dissection or hemodynamically sign ificant stenosis. Unremarkable CTA of the brain without evidence of hemodynamically significant stenosis, aneurysm or A VM. CAROTID STENOSIS REFERENCE USING NASCET CRITERIA: % ICA stenosis = (1 - narrowest ICA diameter/diameter of distal cervical ICA) x 100. Mild - <50% stenosis. Moderate - 50-69% stenosis. Severe - 70-94% stenosis. Near occlusion - 95-99% stenosis. Occluded - 100% stenosis. Electronically signed by: Prince Davila MD 02/19/2024 05:29 AM CDT Due to temporary technical issues with the PACS/Fluency reporting system, reports are being signed by the in house radiologists without review as a courtesy to insure prompt reporting. The interpreting radiologist is fully responsible for the content of the report.
--- NOTE | 2024-02-19 17:37 | RAD REPORT ---
EXAM DESCRIPTION: CT - Ct Stroke Brain Wo Cont - 02/19/2024 6:52 am ADDENDUM #1 Critical findings were discussed with and acknowledged by Dr. Paul Iverson on 02/19/2024 5:06 AM CD T. Electronically signed by: Prince Davila MD 02/19/2024 05:27 AM CDT End of Addendum CLINICAL HISTORY: STROKE ALERT COMPARISON: None. TECHNIQUE: CT HEAD WITHOUT IV CONTRAST on 02/19/2024 4:13 AM CDT This exam was performed according to our departmental dose-optimization program, which includes autom ated exposure control, adjustment of the mA and/or kV according to patient size and/or use of iterati ve reconstruction technique. FINDINGS: There is no acute hemorrhage, mass effect or midline shift. Dickson-white differentiation is preserved. There is no hydrocephalus. There is no significant volume loss for age. The calvarium is intact. Orbits and globes are unremarkable. The paranasal sinuses are clear. Mastoid air cells are clear. IMPRESSION: No acute intracranial findings. Electronically signed by: Prince Davila MD 02/19/2024 04:50 AM CDT Due to temporary technical issues with the PACS/Fluency reporting system, reports are being signed by the in house radiologists without review as a courtesy to insure prompt reporting. The interpreting radiologist is fully responsible for the content of the report.
--- NOTE | 2024-02-19 17:38 | RAD REPORT ---
EXAM DESCRIPTION: CT - Head angio - 02/19/2024 6:52 am ADDENDUM #1 Critical findings were discussed with and acknowledged by Dr. Paul Iverson on 02/19/2024 5:36 AM CD T. Electronically signed by: Prince Davila MD 02/19/2024 05:38 AM CDT End of Addendum CLINICAL HISTORY: STROKE ALERT COMPARISON: None. TECHNIQUE: CT HEAD ANGIOGRAPHY WITH IV CONTRAST, CT NECK ANGIOGRAPHY WITH IV CONTRAST on 02/19/2024 4 :13 AM CDT This exam was performed according to our departmental dose-optimization program, which includes autom ated exposure control, adjustment of the mA and/or kV according to patient size and/or use of iterati ve reconstruction technique. MIP reconstructions were generated. Stenoses are calculated by NASCET criteria. FINDINGS: The visualized aortic arch and origins of the great vessels unremarkable. The common carotid arteries are patent and symmetric bilaterally. No hemodynamically significant stenosis is observed at the common carotid bifurcations or origins of the internal carotid arteries bilaterally. Vertebral arteries are unremarkable without evidence of pseudoaneurysm, hemodynamically significant s tenosis, or dissection. Intracranially the cavernous segments of the internal carotid arteries are patent and symmetric bilat erally. Vertebral basilar system within normal limits for age. No aneurysm identified within the [place] of [place]. Anterior, middle, and posterior cerebral circulat ions are patent and symmetric bilaterally. Dural sinuses are well opacified and without filling defect. IMPRESSION: Unremarkable CT angiogram of the neck for age without dissection or hemodynamically sign ificant stenosis. Unremarkable CTA of the brain without evidence of hemodynamically significant stenosis, aneurysm or A VM. CAROTID STENOSIS REFERENCE USING NASCET CRITERIA: % ICA stenosis = (1 - narrowest ICA diameter/diameter of distal cervical ICA) x 100. Mild - <50% stenosis. Moderate - 50-69% stenosis. Severe - 70-94% stenosis. Near occlusion - 95-99% stenosis. Occluded - 100% stenosis. Electronically signed by: Prince Davila MD 02/19/2024 05:29 AM CDT Due to temporary technical issues with the PACS/Fluency reporting system, reports are being signed by the in house radiologists without review as a courtesy to insure prompt reporting. The interpreting radiologist is fully responsible for the content of the report.
--- NOTE | 2024-02-19 17:39 | RAD REPORT ---
EXAM DESCRIPTION: RAD - Chest Single View - 02/19/2024 4:47 am CLINICAL HISTORY: Vertigo COMPARISON: 06/02/2022. TECHNIQUE: XR CHEST 1 VIEW 02/19/2024 4:13 AM CDT FINDINGS: Cardiac silhouette is normal in size. Lungs are clear without consolidation, atelectasis, mass or edema. There is no pleural effusion. There is no pneumothorax. There are no acute osseous fin dings. IMPRESSION: Clear lungs. Electronically signed by: Prince Davila MD 02/19/2024 04:59 AM CDT Due to temporary technical issues with the PACS/Fluency reporting system, reports are being signed by the in house radiologists without review as a courtesy to insure prompt reporting. The interpreting radiologist is fully responsible for the content of the report.
--- NOTE | 2024-02-19 18:35 | P.HP ---
Certification for Inpatient Patient admitted to: Inpatient With expected LOS: >2 Midnights Patient will require the following post-hospital care: None Practitioner: I am a practitioner with admitting privileges, knowledge of patient current condition, hospital course, and medical plan of care. Services: Services provided to patient in accordance with Admission requirements found in Title 42 Section 412.3 of the Code of Federal Regulations Patient History Date of Service: 02/19/24 Reason for admission: Dizziness History of Present Illness: Petar Mayes is a 78 year old male with a pmhx aortic valve stenosis, diabetes - NIDDM; Hyperlipidemia; Hypertension; Hypothyroidism; Kidney stones; TIA, and DVT who presented to the ED with chief complaint of dizziness, headache, N/V with onset of 9 PM last night. 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 Transfer center requested to admit Mr. Mayes until a bed is available. We have now resulted all scans finding a 4.7 cm acute infarct left cerebellum and small left posterior frontal lobe infarct which is requiring immediate neurological monitoring. On examination NIH scale was 1 for left facial paralysis. He is alert and oriented, conversing appropriately, no acute distress. Initial vitals BP 150 / 79; Pulse 60; Resp 16; Temp 97.5; Pulse Ox 98% on R/A. Laboratory evaluation H&H 12/36, platelets 124, calcium 3.4, BUN/creatinine 21/1.39, GFR 52, serum glucose 153, PT/INR 13.5/1.23, APTT 32.3 Chest x-ray reports "Cardiac silhouette is normal in size. Lungs are clear without consolidation, atelectasis, mass or edema. There is no pleural effusion. There is no pneumothorax. There are no acute osseous findings. IMPRESSION: Clear lungs." EKG reports " Rate is 60 beats/min. Rhythm is regular, 1st Degree Block with No ectopy, PACs, Right bundle branch block. Left axis deviation noted. MO interval is prolonged at 274 msec. QRS interval is normal. QT interval is normal. No Q waves. No ST changes noted" CTA neck/head reports "Unremarkable CT angiogram of the neck for age without d issection or hemodynamically significant stenosis. Unremarkable CTA of the brain without evidence of hemodynamically significant stenosis, aneurysm or AVM." CT brain reports "There is no acute hemorrhage, mass effect or midline shift. Dickson-white differentiation is preserved. There is no hydrocephalus. There is no significant volume loss for age. The calvarium is intact. Orbits and globes are unremarkable. The paranasal sinuses are clear. Mastoid air cells are clear. IMPRESSION: No acute intracranial findings" MRI head w/o contrast reports ": 4.7 centimeter acute infarct left cerebellum. Small left posterior frontal lobe infarcts" Petar will be admitted to hospitalist service for further evaluation and treatment of acute left cerebellar stroke, Dr. Yo has been consulted and requesting immediate neurological monitoring, transfer has been initiated. Allergies No Known Drug Allergies Allergy (Verified 02/19/24 10:34) Unknown Home Medications: Levothyroxine Sodium [Unithroid] 50 mcg PO DAILY 09/19/14 Metformin ER [Glucophage ER*] 100 mg PO BEDTIME 09/19/14 Ascorbic Acid [Vitamin C*] 1,000 mg PO DAILY 01/04/15 Atorvastatin Calcium [Lipitor] 40 mg PO BEDTIME 01/04/15 Cholecalciferol (Vitamin D3) [Vitamin D3] 5,000 unit PO DAILY 01/04/15 Docusate Sodium [Stool Softener] 100 mg PO DAILY 12/06/20 Echinacea 900 mg PO DAILY 12/06/20 Fexofenadine HCl [Allergy Relief] 180 mg PO BEDTIME 12/06/20 Gabapentin 100 mg PO BEDTIME 12/06/20 Losartan Potassium 25 mg PO BEDTIME 12/06/20 Vitamin E 400 unit PO DAILY 12/06/20 Aspirin 81 mg PO DAILY 02/19/24 Levothyroxine Sodium 100 mg PO DAILY 02/19/24 - Past Medical/Surgical History Has patient received pneumonia vaccine in the past: Yes Diabetic: Yes -: DVT -leg -: DM -: kidney "boarderline" -: HTN -: hypothyroid -: gabapentin "helps me sleep" -: TIA no residual -: shoulder surg (L) -: kidney stones -: "aortic valve is closing off" being worked up currently 02/19/24 - Family History Father -: Cancer Mother -: Cancer Sister -: Cancer - Social History Smoking Status: Former smoker Alcohol use: Yes CD- Drugs: No Caffeine use: Yes Place of Residence: Home Review of Systems Cardiovascular: [place] Gastrointestinal: Nausea, Vomiting Neurological: Weakness, Other (dizziness, cannot maintain balance) Physical Examination - Vital Signs Temperature: 97.8 F Blood Pressure: 131/67 Pulse: 60 Respirations: 16 Pulse Ox (%): 98 - Physical Exam General: Alert, In no apparent distress, Oriented x3 HEENT: Atraumatic, Normocephalic, PERRLA Neck: Supple, 2+ carotid pulse no bruit Respiratory: Clear to auscultation bilaterally, Normal air movement Cardiovascular: No edema, Normal pulses, Regular rate/rhythm, Systolic murmur Capillary refill: <2 Seconds Gastrointestinal: Normal bowel sounds, Soft and benign, Non-distended Musculoskeletal: No swelling Integumentary: No breakdown Neurological: Normal speech, Normal strength at 5/5 x4 extr - Studies Laboratory Data (last 24 hrs) 02/19/24 02/19/24 02/19/24 04:48 04:48 04:48 WBC 7.00 Hgb 12.3 L Hct 36.0 L Plt Count 124 L PT 13.5 H INR 1.23 APTT 32.3 Sodium 138 Potassium 3.4 L BUN 21 H Creatinine 1.39 H Glucose 153 H Magnesium 1.7 Total Bilirubin 0.6 AST 14 L ALT 17 Alkaline Phosphatase 69 Assessment and Plan - Plan Assessment plan 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 Yo consulted-recommends immediate transfer for neurological monitoring Neurochecks every 4 hours TSH/free T4, lipid panel in the a.m. Aspirin and statin daily Folic acid and thiamine daily Speech therapy consulted Physical therapy and Occupational Therapy consulted N.p.o. MRI reports "MRI head w/o contrast reports ": 4.7 centimeter acute infarct left cerebellum. Small left posterior frontal lobe infarcts" Permissive hypertension Echo ordered Hypertension Hyperlipidemia Hypothyroidism Permissive hypertension for now Continue home medications for hyperlipidemia and hypothyroidism Aortic valve stenosis Outpatient follow-up with personal cardiology [facility] consulted-continue with outpatient management Diabetes mellitusNIDDM Serum glucose 153 Accu-Check with sliding scale insulin DVT ppx- SCD for now Full code Transfer to tertiary facility Discharge Plan: Transfer (Tertiary facility with for neurological monitoring) - Advance Directives Does patient have a Living Will: No Does patient have a Durable POA for Healthcare: No
--- NOTE | 2024-02-19 18:40 | RAD REPORT ---
EXAM DESCRIPTION: MRI - Brain Wo Cont - 02/19/2024 4:03 pm CLINICAL HISTORY: Dizziness and headaches COMPARISON: Head CT February 19, 2024 and 2008 MRI TECHNIQUE: Axial, sagittal, and coronal magnetic resonance images of the brain were obtained. FINDINGS: Diffusion-weighted/ADC mapping demonstrates a 4.7 centimeter acute infarct left cerebellum Additionally there is a 13 x 3 millimeter and 2 millimeter acute infarct posterior left frontal lobe near the convexity. Moderate to marked areas of abnormal signal within periventricular, deep and subcortical white matter probably ischemic changes secondary to small vessel disease The ventricles are normal caliber. An extra-axial fluid collection is not noted. Fluid within the sinuses/mastoids is not seen IMPRESSION: 4.7 centimeter acute infarct left cerebellum Small left posterior frontal lobe infarcts Exam discussed with Dr Medina
--- NOTE | 2024-02-19 20:00 | CON ---
Reason For Consultation: Consultation called because of possible stroke. Chief Complaint: Dizziness, left facial numbness, and the family said some more worsening confusion. History Of Present Illness: Mr. Mayes is a 78-year-old patient with severe aortic stenosis, hyperte nsion, dyslipidemia, uco-[id number] diabetes mellitus, hypothyroidism, who came to [facility] on 02/19/2024, was seen in the emergency room around 4:09 in the morning as he had developed dizziness, nausea, vomiting, and headache with potential left face, arm, and leg weakness and numbne ss. The patient reportedly went to bed around 9 p.m. tonight for feeling well and woke up with sympt oms of room spinning and nausea vomiting and headache. Again, family thought that there was some lef t-sided symptoms. He had remote "TIA" per the family that involved the left side of his body from ich he reported recovered completely. He had been working without any issues or restrictions and doi ng a full-time job. His does note that over the last 2 weeks, he seemed to be intermittently co nfused, had some problems completing tasks at work, recalling the names of familiar people and seem s omewhat disoriented. His head CT scan and CT angiogram studies of those head and neck along with bra in MRI is done with the results are still pending. He is receiving aspirin 81 mg daily, folic acid b y IV, Lipitor 80 mg at bedtime, and thiamine 100 mg daily. Allergies: NO KNOWN DRUG ALLERGIES. Family History: Noncontributory. Social History: Reportedly, no recent alcohol, tobacco. No IV drug use. Review of Systems: Aside from the confusion, disorientation, there is nausea, vomiting. No fevers or chills. No myalgi as, arthralgias. No rash. No psychiatric complaints, that the headache is noted and facial numbness on the left and weakness that has resolved and some slight confusion disorientation. Physical Examination: Vital Signs: Blood pressure 145/72, pulse 68, respiratory rate 15, temperature 97, oxygen saturation 99%. Weight 185 pounds, height 5 feet 9 inches, BMI 27.3. General: Mr. Mayes is resting in bed. Family is at the bedside. HEENT: He is normocephalic, atraumatic. Sclerae anicteric. Oropharynx pink and moist. Neck: Supple. Chest: Clear. Heart: Regular. EXTREMITIES: Show no clubbing, cyanosis, or edema. NEUROLOGICAL: He is alert and oriented to person, place, time, and situation. He is fully able to s ay date, day of the month, the week, the year. He repeats normally without difficulty 3 words. He w as able to identify objects such as pen, watch, glasses without difficulty. He is aware of the state , county, and the hospital that he is in. He had difficulty with serial 7 subtraction, only able to take away 7 from 150 though further without significant help. He was only able to spell the word wor ld backwards, actually 2 letters and got lost. He was unable to recall 3 words after 3 minutes. His repetition was intact for a phrase. He scored 22/30 on the mini-mental status examination test. Re st of his examination, he will be ambulated with the physical therapist. 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 In terms of his cranial nerves, there is slight decrea se to light touch temperature over the left cheek area around division V2, but otherwise intact in up per and lower part of the face. Intact sensation on both sides to light touch and temperature and ag ain fully strong upper and lower extremities 5/5. Coordination intact upper and lower extremities. Reflexes symmetric upper and lower extremities and with gait, he will be ambulated with the physical therapist with a gait belt. Laboratory Studies: His white blood cell count 7.0, hemoglobin 12.3. INR 1.23. Sodium 138, potassi um 3.4, chloride 108, carbon dioxide 23, BUN 21, creatinine 1.39, glucose ranged from 125 to 171, yin cium 8.7, magnesium 1.7, AST 14, ALT 17, alkaline phosphatase 69. His troponin 1 has been normal at 19.9 and 37.3, albumin 3.2. As noted, his brain CT and brain MRI are results pending. CT angiogram of head and neck results pending. Chest x-ray results pending. Assessment: Mr. Mayes is a 78-year-old patient with reported severe aortic stenosis and diabetes no ninsulin dependent, hypertension, hypothyroidism, who comes to [facility] waking up with charleen sea, vomiting, headache, some left-sided symptoms that at this point only mapped to the left V2 divis ion of the cranial nerve 5 and no other focal neurological deficits except he has [id number] co gnitive impairment. Plan: We will follow up the brain results, vascular imaging, and MRI of the brain tissue and CT scan of the brain tissue to help rule out presence of a stroke, which potentially may be involved posteri or circulation, but also some component of aphasia and of course the apparent dementia, which may be an acute encephalopathy. If available, an EEG may be helpful. The patient should have adapted physical education teacher apy evaluation for the need to stratify his best place for recovery, which may be potentially outpati ent cardiac monitoring after he has his aortic stenosis addressed, which is planned for [place]. All other medications will be continued including for nausea, for pain, for dyslipidemia, for stroke ris k reduction including folic acid and thiamine. MARIAM/LILO Voice ID: [id number] Report ID: [id number]
[2024-02-19 21:55] LABS: Thyroid Stimulating Hormone 1.23 uIU/mL (0.358-3.740)
[2024-02-19] MEDS: TRAMADOL 37.5mg/APAP 325mg PER TAB PO PRN (22:08)
[2024-02-19] MEDS: ATORVASTATIN 80 MG TAB PO SCH (22:08)
[2024-02-19] MEDS: CLOPIDOGREL 75 MG TABLET PO SCH (22:08)
[2024-02-20 00:45] LABS: Specific Gravity > 1.030 (1.005-1.030); Sqamous Epithelial None Seen /HPF (None Seen); Urine Bacteria None Seen /HPF (<20); Urine Bilirubin NEGATIVE (Negative); Urine Blood Negative (Negative); Urine Clarity Clear (Clear); Urine Color Light-Yellow (Yellow); Urine Culture Reflex Order NOT NEEDED; Urine Glucose NEGATIVE (Negative); Urine Ketones NEGATIVE (Negative); Urine Microscopic Reflex YN ORDER UMIC; Urine Mucus Slight /HPF (None Seen); Urine Nitrite NEGATIVE (Negative); Urine Protein TRACE (Negative); Urine RBC <5 /HPF (None Seen); Urine Urobilinogen Normal (Normal); Urine WBC <5 /HPF (<5)
[2024-02-20 05:01] LABS: Absolute Lymphocytes (CBC) 1.3 K/uL (0.7-4.9); Absolute Monocytes 0.8 K/uL (0.1-1.3); Absolute Neutrophil 7.1 K/uL (1.8-8.0); Basophils % 0.3 % (0-1.3); Eosinophils % 0.2 % (0-4.4); Hematocrit 38.3 % (39.6-49.0); Lymphocytes % 13.8 % (15.3-44.8); MCH 30.9 pg (27.0-35.0); MCHC 33.9 g/dL (32.0-36.0); MPV 8.3 fL (7.6-11.3); Monocytes % 8.2 % (3.3-12.3); Neutrophils % 77.5 % (41.7-73.7); Platelets 161 thou/uL (152-406); RBC Red Blood Cell Count 4.22 M/uL (4.33-5.43); Red Cell Distribution Width 14.5 % (12.1-15.2)
[2024-02-20 05:20] LABS: Anion Gap 5.1 mEq/L (5.0-15.0); Magnesium 2.1 mg/dL (1.6-2.4); Phosphorus 2.7 mg/dL (2.5-4.9); Potassium 4.1 mEq/L (3.5-5.1)
[2024-02-20] MEDS: LEVOTHYROXINE SOD 0.088 MG TAB PO SCH (06:33)
--- NOTE | 2024-02-20 07:53 | P.PN ---
Date of Service: 02/20/24 Subjective: feels strength slowly improving. Some incoordination remains but improved compared to yesterday Patient reports prior history of paroxsymal SVT. Denies afib history, and never been on anticoagulation before family feels patient has more energy. more awake/alert today denies vision changes denies chest pain / palpitations ROS: 10 point ROS as noted above, otherwise negative Physical Exam: GEN: Alert, oriented, NAD HEENT: Normal conjunctiva, sclera anicteric CV: Irregularly irregular rhythm, normal rate, no edema, +systolic murmur Pulm: Nonlabored respirations on room air, clear bilaterally ABD: Soft, nontender, nondistended Neuro: mild left lower facial droop, +mild-mod abnormal finger to nose and very mild heel to neri on left side (improved), sensation equal bilaterally in extremities vitals reviewed Problem List: Acute CVA x3 (4.7 cm infarct of left cerebellum, 13x3mm and 2mm acute infarct posterior left frontal lobe near the convexity) hx of prior TIA Atrial Fibrillation, new onset severe aortic valve stenosis Hypertension Hyperlipidemia Hypothyroidism NIDDM2 Acute CVA x3 (4.7 cm infarct of left cerebellum, 13x3mm and 2mm acute infarct posterior left frontal lobe near the convexity) hx of prior DVT / TIA MRI brain (02/18): 4.7 cm infarct of left cerebellum, 13x3mm and 2mm acute infarct posterior left frontal lobe near the convexity. CTA neck/head (02/18): unremarkable. No dissection or hemodynamically significant stenosis. No aneurysm or AVM. repeat CT head (02/19): negative for hemorrhagic conversion CXR (02/18): negative for any acute findings Neurology and cardiology consulted received aspirin 81mg, statin, plavix, folic acid, thiamine Neurology recommended close monitoring in neuroicu given large cerebellar infarct and proximity / risk of brainstem involvement transfer initiated to tertiary care centers 02/18 evening, [facility] with no luck on waiting list for [facility] discussed with family, given stability overnight, improvement, and CT head this morning unchanged, and no hemorrhagic conversion, will continue to monitor, and if stable/improving possible dc home in next ~24hrs ICU, neurochecks q1h, monitor on telemetry PT to eval patient today rhythm on exam concerning for afib, EKG done this morning - discussed with cardiology and in agreement of afib, rate-controlled Discussed with neuro on starting anticoagulation, patient received DAPT this morning, plan to start eliquis in AM Atrial Fibrillation Patient has prior history of paroxsymal SVT. denies a-fib. Never been on blood thinners per patient. CHADSVASC at least a 5, will need anticoagulation discussed with neuro, start tomorrow severe aortic valve stenosis Reportedly being worked up at [facility] for JAMIE d/t critical severe , BISMARK 0.6 cm2 and MG of 57 mmHg continue to follow up with sulfuric acid plant operator at [facility] - discussed with patient/family may need to delay any planned procedures in next 1-2 months given acute CVA; but ultimately will be a discussion with his sulfuric acid plant operator Cardiology consulted Hypertension Patient reports systolic BP in 100s on losartan allow for permissive hypertension for now Confirm home meds Hyperlipidemia continue statin Hypothyroidism continue home synthroid NIDDM2 accu-checks, SSI VTE: SCD for now Code: Full Dispo: Pending PT eval / patient choice 02/18 Initiated transfer to tertiary level of care facility d/t need for close neuro ICU monitoring 02/19 transfer pending acceptance to [facility]
[2024-02-20 08:03] VITALS: O2SAT 96
[2024-02-20] MEDS: ASPIRIN EC 81 MG TAB PO SCH (08:11)
[2024-02-20] MEDS: FOLIC ACID 1 MG TABLET PO SCH (08:11)
[2024-02-20] MEDS ORDERED: LEVOTHYROXINE SOD 0.1 MG TAB PO SCH (09:00)
--- NOTE | 2024-02-20 10:45 | RAD REPORT ---
EXAM DESCRIPTION: CT - Head Brain Wo Cont - 02/20/2024 10:26 am CLINICAL HISTORY: f/u CVA; r/o hemorrhage Headache, drowsiness COMPARISON: Head angio dated 02/19/2024; Ct Stroke Brain Wo Cont dated 02/19/2024; Brain Wo Cont dated 02/19/2024 TECHNIQUE: All CT scans are performed using dose optimization technique as appropriate and may inclu de automated exposure control or mA/KV adjustment according to patient size. FINDINGS: No intracranial hemorrhage, hydrocephalus or extra-axial fluid collection.4 cm area of dim inished density medial left cerebellar hemisphere compatible with subacute infarct no hemorrhagic con version is seen.No midline shift is seen. The paranasal sinuses and mastoids are clear. The calvarium is intact. IMPRESSION: No finding to indicate hemorrhagic conversion of known infarcts
--- NOTE | 2024-02-20 19:51 | P.PN ---
Subjective Date of Service: 02/20/24 Chief Complaint: Dizziness Subjective: New changes (MRI shows left cerebellum stroke, EKG shows atrial fibrillation) Review of Systems 10-point ROS is otherwise unremarkable Physical Examination - Vital Signs Temperature: 97.4 F Blood Pressure: 118/53 Pulse: 63 Respirations: 15 Pulse Ox (%): 97 - Physical Exam General: Alert, Oriented x3 HEENT: Atraumatic Neck: Supple Respiratory: Clear to auscultation bilaterally Cardiovascular: No edema, Normal S1 S2 Gastrointestinal: Normal bowel sounds Assessment And Plan - Current Problems (Diagnosis) (1) Aortic stenosis Current Visit: Yes Status: Acute Plan: per last note from patient outside digital asset manager, patient got critical severe , BISMARK 0.6 cm2 and MG of 57 mmHg. patient is getting worked up for JAMIE at the [facility]. advised to keep following up with digital asset manager. I do not think his dizziness in the middle of the night is from severe as it will typically cause exertional CP/SOB or dizziness. (2) HTN (hypertension) Current Visit: Yes Status: Acute Plan: patient mention that his BP was low on Losartan, systolic down to 100s, will hold for now and monitor. (3) Atrial fibrillation Current Visit: Yes Status: Acute Plan: Patient now recall that he might have told by his digital asset manager before that e got AF, EKG shows AF rate controlled Eliquis 5 mg po BID.
[2024-02-20 20:26] VITALS: BP 118/67; TEMP 97.8
--- NOTE | 2024-02-20 21:12 | P.DS ---
Admission Date: 02/19/24 Discharge Date: 02/21/24 Disposition: TRANSFER TO [facility] Discharge Condition: FAIR Reason for Admission: Dizziness Consultations: Neurology - Dr. Yo Cardiology - Dr. Wise Brief History of Present Illness: Petar Mayes is a 78 year old male with a pmhx aortic valve stenosis, diabetes - NIDDM; Hyperlipidemia; Hypertension; Hypothyroidism; Kidney stones; TIA, and DVT who presented to the ED with chief complaint of dizziness, headache, N/V with onset of 9 PM last night. While in the ED, family requested transfer to [facility] where his layer out is and where the expected TAVR procedure is scheduled this month. Transfer center requested to admit Mr. Mayes until a bed is available. We have now resulted all scans finding a 4.7 cm acute infarct left cerebellum and small left posterior frontal lobe infarct which is requiring immediate neurological monitoring.On examination NIH scale was 1 for left facial paralysis. He is alert and oriented, conversing appropriately, no acute distress. MRI head w/o contrast reports ": 4.7 centimeter acute infarct left cerebellum. Small left posterior frontal lobe infarcts" Petar will be admitted to hospitalist service for further evaluation and treatment of acute left cerebellar stroke, Dr. Yo has been consulted and requesting immediate neurological monitoring, transfer has been initiated. Hospital Course: Problem List: Acute CVA x3 (4.7 cm infarct of left cerebellum, 13x3mm and 2mm acute infarct posterior left frontal lobe near the convexity) hx of prior TIA Atrial Fibrillation, new onset severe aortic valve stenosis Hypertension Hyperlipidemia Hypothyroidism NIDDM2 Patient presented with dizziness, headache, nausea/vomiting, and was found to have 3 acute CVAs seen on MRI (4.7 cm infarct of left cerebellum, 13x3mm and 2mm acute infarct posterior left frontal lobe near the convexity). Repeat CT head 02/19 was negative for hemorrhagic conversion. CTA head/neck was unremarkable - no evidence of dissection / hemodynamically significant stenosis / aneurysm / AVM. Neurology was consulted and Dr. Yo recommended transfer to tertiary level of care facility due to patient requiring close monitoring in neuro ICU given large cerebellar infarct and proximity / risk of brainstem involvement. Transfer was initiated to tertiary level of care facility [facility] 5/10 pm and patient was accepted 02/19 evening. Patient was noted to also convert into new onset a-fib shortly after admission. EKG was done and discussed with cardiology, in agreement of a-fib rate controlled in 60-70s. Discussed with neuro on starting anticoagulation, patient received DAPT 02/19 am and had planned to transition to eliquis 02/20 am. Physical Exam GEN: Alert, oriented, NAD HEENT: Normal conjunctiva, sclera anicteric CV: Irregularly irregular rhythm, normal rate, no edema, +systolic murmur Pulm: Nonlabored respirations on room air, clear bilaterally ABD: Soft, nontender, nondistended Neuro: mild left lower facial droop, +mild-mod abnormal finger to nose and very mild heel to neri on left side (improved), sensation equal bilaterally in extremities Vital Signs/Physical Exam: Temp Pulse Resp BP Pulse Ox 97.8 F 73 18 118/67 95 02/20/24 20:13 02/20/24 20:13 02/20/24 20:14 02/20/24 20:13 02/20/24 20:14 Laboratory Data at Discharge: WBC 9.20 thou/uL (4.3-10.9) 02/20/24 04:14 Hgb 13.0 g/dL (13.6-17.9) L 02/20/24 04:14 Hct 38.3 % (39.6-49.0) L 02/20/24 04:14 Plt Count 161 thou/uL (152-406) D 02/20/24 04:14 PT 13.5 SECONDS (9.5-12.5) H 02/19/24 04:48 INR 1.23 02/19/24 04:48 APTT 32.3 SECONDS (24.3-36.9) 02/19/24 04:48 Sodium 137 mEq/L (136-145) 02/20/24 04:14 Potassium 4.1 mEq/L (3.5-5.1) D 02/20/24 04:14 BUN 19 mg/dL (7-18) H 02/20/24 04:14 Creatinine 1.20 mg/dL (0.70-1.30) 02/20/24 04:14 Glucose 110 mg/dL (74-106) H 02/20/24 04:14 Phosphorus 2.7 mg/dL (2.5-4.9) 02/20/24 04:14 Magnesium 2.1 mg/dL (1.6-2.4) 02/20/24 04:14 Total Bilirubin 0.6 mg/dL (0.2-1.0) 02/19/24 04:48 AST 14 U/L (15-37) L 02/19/24 04:48 ALT 17 U/L (16-61) 02/19/24 04:48 Alkaline Phosphatase 69 U/L (45-117) 02/19/24 04:48 Triglycerides 49 mg/dL (<150) 02/19/24 21:11 Cholesterol 98 mg/dL (<200) 02/19/24 21:11 HDL Cholesterol 43 mg/dL (40-60) 02/19/24 21:11 Cholesterol/HDL Ratio 2.28 02/19/24 21:11 Home Medications: Metformin ER [Glucophage ER*] 100 mg PO BEDTIME 09/19/14 Ascorbic Acid [Vitamin C*] 1,000 mg PO DAILY 01/04/15 Atorvastatin Calcium [Lipitor] 40 mg PO BEDTIME 01/04/15 Cholecalciferol (Vitamin D3) [Vitamin D3] 5,000 unit PO DAILY 01/04/15 Docusate Sodium [Stool Softener] 100 mg PO DAILY 12/06/20 Echinacea 900 mg PO DAILY 12/06/20 Fexofenadine HCl [Allergy Relief] 180 mg PO BEDTIME 12/06/20 Gabapentin 100 mg PO BEDTIME 12/06/20 Losartan Potassium 25 mg PO BEDTIME 12/06/20 Vitamin E 400 unit PO DAILY 12/06/20 Aspirin 81 mg PO DAILY 02/19/24 Levothyroxine [Synthroid] 88 mcg PO [id number] 02/19/24 Followup: Don Rivas MD [Primary Care Provider] - Time spent managing pt's care (in minutes): 45
[2024-02-21] MEDS ORDERED: APIXABAN 5 MG TABLET PO SCH (09:00)
--- NOTE | 2024-02-22 13:29 | EKG ---
Test Date: 2024-02-19 Test Time: 04:49:28 Government Operations Consultant: MEASUREMENT RESULTS: Intervals: Rate: 60 CT: 274 QRSD: 134 QT: 454 QTc: 454 [place]: P: 82 CT: 274 QRS: -22 T: 15 INTERPRETIVE STATEMENTS: Sinus rhythm with 1st degree AV block with blocked premature atrial complexes Right bundle branch block Abnormal ECG Compared to ECG 12/06/2020 16:01:15 Right bundle-branch block now present Sinus bradycardia no longer present Left-axis deviation no longer present Incomplete right bundle-branch block no longer present Electronically Signed On 02-22-24 13:19:42 CDT by Darell Nagel
== END 2024-02-20 20:25 | disposition short-term general hospital (02) ==
LOC: ER 04:09 → ERHOLD 08:14 → 2ND 10:14 → 3RD-ICU 20:35 → 4TH 02-20 16:20
PROVIDERS: ADMIT Hospitalist; ATTEND Hospitalist
DX: I63.9 Cerebral infarction, unspecified (principal); I48.91 Unspecified atrial fibrillation; I35.0 Nonrheumatic aortic (valve) stenosis; R29.702 NIHSS score 2; E11.9 Type 2 diabetes mellitus without complications; E78.5 Hyperlipidemia, unspecified; I10 Essential (primary) hypertension; E03.9 Hypothyroidism, unspecified; N20.0 Calculus of kidney; R51.9 Headache, unspecified; R11.2 Nausea with vomiting, unspecified; Z86.73 Personal history of transient ischemic attack (TIA), and cerebral infarction without residual deficits; Z86.718 Personal history of other venous thrombosis and embolism
CPT/HCPCS: 96365; 85025 ×2; 81001; 80048 ×2; 36415 ×2; 83735 ×2; 84100; 85610; 80061; 82947 ×8; 80076; 85730; 84443; 84484 ×3; 84439; 70450 ×2; 70496; 70498; 71045; 70551; 97116; 97163; 97530 ×2; 96375; 99285; 96366; Q9967; J3411 ×2; J8597 ×3; J3475; J2765; J1200; J2405 ×2; G0378 ×5; 93005

== ENCOUNTER 2024-03-15 11:44 | Emergency (ER) | payer OTHER ==
[2024-03-15 12:19] LABS: Absolute Lymphocytes (CBC) 1.4 K/uL (0.7-4.9); Absolute Monocytes 0.5 K/uL (0.1-1.3); Absolute Neutrophil 4.3 K/uL (1.8-8.0); Basophils % 0.3 % (0-1.3); Eosinophils % 0.6 % (0-4.4); Hematocrit 44.6 % (39.6-49.0); Hemoglobin 14.8 g/dL (13.6-17.9); Lymphocytes % 22.4 % (15.3-44.8); MCH 30.5 pg (27.0-35.0); MCHC 33.2 g/dL (32.0-36.0); MPV 8.4 fL (7.6-11.3); Monocytes % 8.3 % (3.3-12.3); Neutrophils % 68.4 % (41.7-73.7); Platelets 162 thou/uL (152-406); RBC Red Blood Cell Count 4.85 M/uL (4.33-5.43); Red Cell Distribution Width 14.1 % (12.1-15.2); Specific Gravity 1.027 (1.005-1.030); Sqamous Epithelial <5 /HPF (None Seen); Urine Bacteria None Seen /HPF (<20); Urine Bilirubin NEGATIVE (Negative); Urine Blood Negative (Negative); Urine Clarity Clear (Clear); Urine Color Yellow (Yellow); Urine Culture Reflex Order NOT NEEDED; Urine Glucose NEGATIVE (Negative); Urine Ketones NEGATIVE (Negative); Urine Microscopic Reflex YN ORDER UMIC; Urine Mucus Slight /HPF (None Seen); Urine Nitrite NEGATIVE (Negative); Urine Protein TRACE (Negative); Urine Urobilinogen 1+ (Normal); Urine WBC <5 /HPF (<5); Urine pH 5.5 (5.0-7.0)
[2024-03-15 12:20] LABS: PT Prothrombin Time 21.2 SECONDS (9.5-12.5); Protime INR 1.97
[2024-03-15] MEDS ORDERED: NA CHLORIDE 0.9% 1,000 ML ONE (12:37)
[2024-03-15] MEDS ORDERED: NA CHLORIDE 0.9% 500 ML ONE (12:38)
[2024-03-15 12:46] LABS: Albumin 3.8 g/dL (3.4-5.0); Albumin/Globulin Ratio 1.2 (1.1-1.8); Anion Gap 10.2 mEq/L (5.0-15.0); Bilirubin Direct 0.2 mg/dL (0-0.2); Bilirubin Indirect, Calculated 0.6 mg/dL (0.2-0.8); Bilirubin Total 0.8 mg/dL (0.2-1.0); Globulin 3.1 g/dL (2.3-3.5); Magnesium 1.9 mg/dL (1.6-2.4); Potassium 4.2 mEq/L (3.5-5.1); Protein, Total 6.9 g/dL (6.4-8.2); Thyroid Stimulating Hormone 1.33 uIU/mL (0.358-3.740); Troponin High Sensitivity 12.8 pg/mL (<58.9)
--- NOTE | 2024-03-15 12:57 | RAD REPORT ---
EXAM DESCRIPTION: RADChest Single View03/15/2024 12:21 pm CLINICAL HISTORY: COUGH COMPARISON: Chest Single View dated 02/19/2024; Abdomen 1 View (KUB) dated 12/24/2020; Chest Pa And La t (2 Views) dated 12/06/2020; Abdomen 1 View (KUB) dated 10/01/2020 TECHNIQUE: Portable AP view of the chest. FINDINGS: The lungs are clear. No pneumothorax or effusion. The cardiomediastinal contours are unre markable. IMPRESSION: No acute cardiopulmonary process.
--- NOTE | 2024-03-15 15:07 | RAD REPORT ---
EXAM DESCRIPTION: CT - Head Brain Wo Cont - 03/15/2024 2:48 pm CLINICAL HISTORY: Dizziness COMPARISON: February 20, 2024 CT TECHNIQUE: Computed axial tomography of the head was obtained. IV contrast was not requested. All CT scans are performed using dose optimization technique as appropriate and may include automated exposure control or mA/KV adjustment according to patient size. FINDINGS: An intracranial bleed is not seen The ventricles are normal in caliber No extra-axial fluid collection is noted. Moderate subacute left occipital lobe infarction. . Fluid within the sinuses/ mastoids is not seen. IMPRESSION: Moderate subacute left occipital lobe infarction No acute intracranial abnormality is seen If patient's symptoms persist MRI of the brain would be recommended
--- NOTE | 2024-03-15 15:13 | EDPHYS ---
Physician Documentation [facility] Name: Petar Mayes Age: 78 yrs Sex: Male : 1945 Arrival Date: 03/15/2024 Time: 11:44 Bed 18 Private MD: ED Physician Piero Heard HPI: 03/15 14:33 This 78 yrs old Male presents to ER via Wheelchair with complaints of Afib. lindsey 14:33 The patient presents with dizzy. Onset: The symptoms/episode began/occurred just prior lindsey to arrival. Possible causes: CVA or TIA, low blood sugar, seizure. The patient presents with dizziness, generalized weakness, sense of spinning. Context: occurred at a hospital. Modifying factors: The symptoms are alleviated by nothing, the symptoms are aggravated by nothing. Associated signs and symptoms: The patient has no apparent associated signs or symptoms. Associated signs and symptoms: The patient has no apparent associated signs or symptoms. Severity of symptoms: At their worst the symptoms were mild in the emergency department the symptoms have resolved and did so just prior to arrival. Current symptoms: In the emergency department the patient's symptoms have improved, markedly. Patient's baseline: Neuro: alert and fully oriented. Historical: - Allergies: 12:01 No Known Allergies; ap3 - PMHx: 12:01 Diabetes - NIDDM; Hyperlipidemia; Hypertension; Hypothyroidism; Kidney stones; TIA; ap3 - Immunization history:: Adult Immunizations unknown. - Infectious Disease History:: Denies. - Social history:: Smoking status: Patient denies any tobacco usage or history of. ROS: 14:34 Constitutional: Negative for fever, chills, and weight loss, Eyes: Negative for injury, lindsey pain, redness, and discharge, ENT: Negative for injury, pain, and discharge, Neck: Negative for injury, pain, and swelling, Cardiovascular: Negative for chest pain, palpitations, and edema, Respiratory: Negative for shortness of breath, cough, wheezing, and pleuritic chest pain, Abdomen/GI: Negative for abdominal pain, nausea, vomiting, diarrhea, and constipation, Back: Negative for injury and pain, : Negative for injury, bleeding, discharge, and swelling, MS/Extremity: Negative for injury and deformity, Skin: Negative for injury, rash, and discoloration, Psych: Negative for depression, anxiety, suicide ideation, homicidal ideation, and hallucinations, Allergy/Immunology: Negative for hives, rash, and allergies, Endocrine: Negative for neck swelling, polydipsia, polyuria, polyphagia, and marked weight changes, Hematologic/Lymphatic: Negative for swollen nodes, abnormal bleeding, and unusual bruising, 14:34 Neuro: Positive for dizziness, weakness, Exam: 14:34 Constitutional: This is a well developed, well nourished patient who is awake, alert, lindsey and in no acute distress. Head/Face: Normocephalic, atraumatic. Eyes: Pupils equal round and reactive to light, extra-ocular motions intact. Lids and lashes normal. Conjunctiva and sclera are non-icteric and not injected. Cornea within normal limits. Periorbital areas with no swelling, redness, or edema. ENT: Nares patent. No nasal discharge, no septal abnormalities noted. Tympanic membranes are normal and external auditory canals are clear. Oropharynx with no redness, swelling, or masses, exudates, or evidence of obstruction, uvula midline. Mucous membranes moist. Neck: Trachea midline, no thyromegaly or masses palpated, and no cervical lymphadenopathy. Supple, full range of motion without nuchal rigidity, or vertebral point tenderness. No Meningismus. Chest/axilla: Normal chest wall appearance and motion. Nontender with no deformity. No lesions are appreciated. Respiratory: Lungs have equal breath sounds bilaterally, clear to auscultation and percussion. No rales, rhonchi or wheezes noted. No increased work of breathing, no retractions or nasal flaring. Abdomen/GI: Soft, non-tender, with normal bowel sounds. No distension or tympany. No guarding or rebound. No evidence of tenderness throughout. Back: No spinal tenderness. No costovertebral tenderness. Full range of motion. Male : Normal genitalia with no discharge or lesions. Skin: Warm, dry with normal turgor. Normal color with no rashes, no lesions, and no evidence of cellulitis. MS/ Extremity: Pulses equal, no cyanosis. Neurovascular intact. Full, normal range of motion. Neuro: Awake and alert, GCS 15, oriented to person, place, time, and situation. Cranial nerves II-XII grossly intact. Motor strength 5/5 in all extremities. Sensory grossly intact. Cerebellar exam normal. Normal gait. Psych: Awake, alert, with orientation to person, place and time. Behavior, mood, and affect are within normal limits. 14:34 Cardiovascular: Rate: normal, actual rate is 70 bpm, Rhythm: irregularly irregular, Pulses: Heart sounds: normal, JVD: is not appreciated, 14:34 ECG was reviewed by the Attending Physician. Vital Signs: 11:59 BP 141 / 88; Pulse 82; Resp 17; Pulse Ox 98% on R/A; Weight 75.3 kg; Height 5 ft. 9 in. ap3 ; 12:30 BP 108 / 85; Pulse 74; Resp 18; Pulse Ox 98% on R/A; tl4 13:00 BP 115 / 79; Pulse 67; Resp 14; Pulse Ox 99% on R/A; tl4 13:30 BP 106 / 73; Pulse 62; Resp 14; Pulse Ox 97% on R/A; tl4 14:46 BP 123 / 80 Supine; Pulse 68; Resp 15; Pulse Ox 100% on R/A; tl4 14:49 BP 119 / 86 Sitting; Pulse 72; Resp 19; Pulse Ox 100% on R/A; tl4 14:52 BP 121 / 91 Standing; Pulse 86; Resp 16; Pulse Ox 100% on R/A; tl4 15:28 BP 126 / 87; Pulse 64; Resp 16; Temp 98.1(TE); Pulse Ox 97% on R/A; Pain 0/10; tl4 11:59 Body Mass Index 24.51 (75.30 kg, 175.26 cm) ap3 15:28 Pain Scale: Adult tl4 MDM: 11:52 Patient medically screened. lindsey 14:37 Differential Diagnosis: CVA, electrolyte abnormality, hypoglycemia, intracranial bleed, lindsey TIA, UTI, volume depletion, cardiac arrhythmia, CVA, generalized weakness, GI bleed, hypovolemia, idiopathic dizziness, near-syncope, TIA. Data reviewed: vital signs, nurses notes, EMS record, lab test result(s), EKG, radiologic studies, CT scan, plain films. Consideration of Admission/Observation Escalation of care including admission/observation considered. I considered the following discharge prescriptions or medication management in the emergency department Medications were administered in the Emergency Department. See MAR. Independent interpretation of the following test(s) in the Emergency Department EKG: See my EKG interpretation above. Test considered but Not performed: MRI: no mri brain. Historians other than the Patient: Family Member: multiple members. Care significantly affected by the following chronic conditions: Diabetes, Hypertension, Chronic Kidney Disease, high lipids, kidney stones. Counseling: I had a detailed discussion with the patient and/or guardian regarding the historical points, exam findings, and any diagnostic results supporting the discharge/admit diagnosis, lab results, radiology results, the need for outpatient follow up, for definitive care, a family practitioner, a neurologist. 03/15 11:53 Order name: Basic Metabolic Panel; Complete Time: 14:22 [facility] 03/15 11:53 Order name: CBC with Diff; Complete Time: 14:22 lindsey 03/15 11:53 Order name: LFT's; Complete Time: 14:22 [facility] 03/15 11:53 Order name: Magnesium; Complete Time: 14:22 03/15 11:53 Order name: NT PRO-BNP; Complete Time: 14:22 lindsey 03/15 11:53 Order name: PT-INR; Complete Time: 14:22 03/15 11:53 Order name: Troponin HS; Complete Time: 14:22 [facility] 03/15 11:53 Order name: TSH; Complete Time: 14:22 [facility] 03/15 11:53 Order name: Urinalysis w/ reflexes; Complete Time: 14:22 [facility] 03/15 11:53 Order name: XRAY Chest (1 view); Complete Time: 14:22 03/15 14:32 Order name: CT Head Brain wo Cont; Complete Time: 15:53 03/15 11:53 Order name: Cardiac monitoring; Complete Time: 12:02 03/15 11:53 Order name: EKG - Nurse/Tech; Complete Time: 12:09 03/15 11:53 Order name: IV Saline Lock; Complete Time: 12:09 lindsey 03/15 11:53 Order name: Labs collected and sent; Complete Time: 12:09 03/15 11:53 Order name: O2 Per Protocol; Complete Time: 11:58 03/15 11:53 Order name: O2 Sat Monitoring; Complete Time: 11:58 03/15 14:32 Order name: PO challenge; Complete Time: 15:02 03/15 14:32 Order name: Orthostatics; Complete Time: 15:02 [facility] EC:34 Rate is 70 beats/min. Rhythm is irregularly irregular, A fib. QRS [place] is Normal. [place] lindsey interval is normal. QRS interval is normal. QT interval is normal. No Q waves. T waves are Normal. No ST changes noted. Clinical impression: Atrial Fibrillation. Interpreted by me. Reviewed by me. Administered Medications: 12:53 Drug: NS 0.9% IV 500 ml IV at bolus once Route: IV; Rate: bolus; Site: right tl4 antecubital; Delivery: Primary tubing; 14:40 Follow up: Response: No adverse reaction; IV Status: Completed infusion; IV Intake: tl4 500ml 12:54 Drug: NS 0.9% IV 1000 ml IV at 125 ml/hr continuous Route: IV; Rate: 125 ml/hr; Site: tl4 right antecubital; Delivery: Dial-a-flow; 15:49 Follow up: Response: No adverse reaction; IV Status: Completed infusion; IV Intake: tl4 400ml Disposition Summary: 03/15/24 15:13 Discharge Ordered Notes: Location: Home lindsey Problem: new lindsey Symptoms: have improved lindsey Condition: Stable lindsey Diagnosis - Persistent atrial fibrillation lindsey - Dizziness and giddiness 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 - 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 lindsey - Unspecified kidney failure - chronic lindsey - Cerebral infarction, unspecified - Moderate subacute left occipital infarct lindsey Followup: lindsey - With: Private Physician - When: 2 - 3 days - Reason: Recheck today's complaints, Continuance of care, Re-evaluation by your physician Followup: lindsey - With: Wilmar Yo MD - When: 2 - 3 days - Reason: Recheck today's complaints, Re-evaluation by your physician Discharge Instructions: - Discharge Summary Sheet lindsey - Atrial Fibrillation lindsey - Dizziness lindsey - Ischemic Stroke lindsey - Stroke Prevention lindsey - Vertigo lindsey - Rehabilitation After a Stroke, Adult lindsey - Chronic Kidney Disease, Adult, [id number] lindsey - Atrial Fibrillation, [id number] lindsey - Stroke Prevention, [id number] lindsey - Dizziness, [id number] lindsey - Ischemic Stroke, [id number] lindsey - Medicines After an Ischemic Stroke lindsey - Physical Therapy After a Stroke lindsey Forms: - Medication Reconciliation Form lindsey - Antibiotic Education lindsey - Prescription Opioid Use lindsey - Patient Portal Instructions lindsey - Leadership Thank You Letter lindsey Signatures: Dispatcher [employer] Piero Villatoro MD MD cha Prokisch, Amanda RN RN ap3 Jase Yost, RN RN tl4 Corrections: (The following items were deleted from the chart) 11 11:53 BASIC METABOLIC PANEL+C.LAB.BRZ ordered. EDMS EDMS 11: 11:53 CBC+H.LAB.BRZ ordered. EDMS EDMS 11: 11:53 HEPATIC FUNCTION+C.LAB.BRZ ordered. EDMS EDMS 11 11:53 MAGNESIUM+C.LAB.BRZ ordered. EDMS EDMS 11: 11:53 PROBNP+C.LAB.BRZ ordered. EDMS EDMS 11: 11:53 PROTIME (+INR)+COAG.LAB.BRZ ordered. EDMS EDMS 11:53 11:53 Troponin High Sensitivity+C.LAB.BRZ ordered. EDMS EDMS 11:53 11:53 THYROID STIMULAT HORMONE+C.LAB.BRZ ordered. EDMS EDMS 11:53 11:53 Urinalysis+U.LAB.BRZ ordered. EDMS EDMS
--- NOTE | 2024-03-15 15:13 | ER ---
Nurse's Notes [facility] Name: Petar Mayes Age: 78 yrs Sex: Male : 1945 Arrival Date: 03/15/2024 Time: 11:44 Bed 18 Private MD: Diagnosis: Persistent atrial fibrillation;Dizziness and giddiness;care home (current) use of anticoagulants;Unspecified kidney failure-chronic ;Cerebral infarction, unspecified-Moderate subacute left occipital infarct Presentation: 03/15 11:59 Chief complaint: Patient states: he was at physical therapy when he got dizzy. it is ap3 reported the patient was in a-fib during this time. patient reports the dizziness has since resolved. Coronavirus screen: At this time, the client does not indicate any symptoms associated with coronavirus-19. Ebola Screen: No symptoms or risks identified at this time. Initial Sepsis Screen: Does the patient meet any 2 criteria? No. Patient's initial sepsis screen is negative. Does the patient have a suspected source of infection? No. Patient's initial sepsis screen is negative. Risk Assessment: Do you want to hurt yourself or someone else? Patient reports no desire to harm self or others. Onset of symptoms was March 15, 2024. 11:59 Method Of Arrival: Wheelchair ap3 11:59 Acuity: GENNARO 2 ap3 Triage Assessment: 12:01 General: Appears in no apparent distress. Behavior is calm, cooperative, appropriate ap3 for age. Pain: Denies pain. Neuro: Level of Consciousness is awake, alert, obeys commands, Oriented to person, place, time, situation, Gait is steady, Speech is normal. Cardiovascular: Patient's skin is warm and dry. Respiratory: Airway is patent Respiratory effort is even, unlabored, Respiratory pattern is regular, symmetrical. Historical: - Allergies: 12:01 No Known Allergies; ap3 - PMHx: 12:01 Diabetes - NIDDM; Hyperlipidemia; Hypertension; Hypothyroidism; Kidney stones; TIA; ap3 - Immunization history:: Adult Immunizations unknown. - Infectious Disease History:: Denies. - Social history:: Smoking status: Patient denies any tobacco usage or history of. Screenin:02 Abuse screen: Denies threats or abuse. Nutritional screening: No deficits noted. ap3 Tuberculosis screening: No symptoms or risk factors identified. 15:29 [facility] ED Fall Risk Assessment (Adult) History of falling in the last 3 months, tl4 including since admission No falls in past 3 months (0 pts) Confusion or Disorientation No (0 pts) Intoxicated or Sedated No (0 pts) Impaired Gait No (0 pts) Mobility Assist Device Used No (0 pt) Altered Elimination No (0 pt) Score/Fall Risk Level 0 - 2 = Low Risk Oriented to surroundings, Maintained a safe environment, Educated pt \T\ family on fall prevention, incl call for assistance when getting out of bed, Assessed \T\ reinforced patient's understanding of fall precautions, Hourly rounding (assess needs \T\ fall precautionary measures) done, Used ambulatory aids as needed (educated on \T\ assisted with), Used gait belt as appropriate. Assessment: 12:30 General: Appears in no apparent distress. Behavior is calm, cooperative. Pain: Denies tl4 pain. Neuro: Level of Consciousness is awake, alert, obeys commands, Oriented to person, place, time, situation, Moves all extremities. Full function Speech is normal, Facial symmetry appears normal. Cardiovascular: Denies chest pain, lightheadedness, palpitations, shortness of breath, Capillary refill < 3 seconds Patient's skin is warm and dry. Rhythm is atrial fibrillation. Respiratory: Airway is patent Respiratory effort is even, unlabored, Respiratory pattern is regular, symmetrical, Breath sounds are clear bilaterally. GI: No signs and/or symptoms were reported involving the gastrointestinal system. : No signs and/or symptoms were reported regarding the genitourinary system. EENT: No signs and/or symptoms were reported regarding the EENT system. Derm: No signs and/or symptoms reported regarding the dermatologic system. Musculoskeletal: No signs and/or symptoms reported regarding the musculoskeletal system. 13:45 Reassessment: No changes from previously documented assessment. Patient and/or family tl4 updated on plan of care and expected duration. Pain level reassessed. Patient is alert, oriented x 3, equal unlabored respirations, skin warm/dry/pink. Pt denies any needs at this time. Family at bedside. Will continue to monitor. 14:52 Reassessment: No changes from previously documented assessment. Patient and/or family tl4 updated on plan of care and expected duration. Pain level reassessed. Patient is alert, oriented x 3, equal unlabored respirations, skin warm/dry/pink. Pt denies any needs at this time. Family at bedside. Will continue to monitor. 15:27 Reassessment: No changes from previously documented assessment. Patient and/or family tl4 updated on plan of care and expected duration. Pain level reassessed. Patient is alert, oriented x 3, equal unlabored respirations, skin warm/dry/pink. No needs identified at this time. Family at bedside. Will continue to monitor. 15:48 Reassessment: Discharge delayed due to patient and family requesting to speak to Dr darin Heard regarding discharge. Dr Heard and kiln charger aware. Vital Signs: 11:59 BP 141 / 88; Pulse 82; Resp 17; Pulse Ox 98% on R/A; Weight 75.3 kg; Height 5 ft. 9 in. ap3 ; 12:30 BP 108 / 85; Pulse 74; Resp 18; Pulse Ox 98% on R/A; tl4 13:00 BP 115 / 79; Pulse 67; Resp 14; Pulse Ox 99% on R/A; tl4 13:30 BP 106 / 73; Pulse 62; Resp 14; Pulse Ox 97% on R/A; tl4 14:46 BP 123 / 80 Supine; Pulse 68; Resp 15; Pulse Ox 100% on R/A; tl4 14:49 BP 119 / 86 Sitting; Pulse 72; Resp 19; Pulse Ox 100% on R/A; tl4 14:52 BP 121 / 91 Standing; Pulse 86; Resp 16; Pulse Ox 100% on R/A; tl4 15:28 BP 126 / 87; Pulse 64; Resp 16; Temp 98.1(TE); Pulse Ox 97% on R/A; Pain 0/10; tl4 11:59 Body Mass Index 24.51 (75.30 kg, 175.26 cm) ap3 15:28 Pain Scale: Adult tl4 Vitals: 12:30 Cardiac Rhythm Assessment Irregular Atrial fibrillation. tl4 ED Course: 11:48 Patient arrived in ED. mg5 11:52 Piero Heard MD is Attending Physician. lindsey 11:58 Carrol Regan, GARY is Primary Nurse. kc6 12:01 Triage completed. ap3 12:02 Arm band placed on right wrist. ap3 12:02 Patient has correct armband on for positive identification. Placed in gown. Bed in low ap3 position. Call light in reach. Side rails up X 1. Client placed on continuous cardiac and pulse oximetry monitoring. NIBP monitoring applied. pvc monitor on. Pulse ox on. NIBP on. 12:09 Basic Metabolic Panel Sent. tl4 12:09 CBC with Diff Sent. tl4 12:09 LFT's Sent. tl4 12:09 Magnesium Sent. tl4 12:09 NT PRO-BNP Sent. tl4 12:09 PT-INR Sent. tl4 12:09 Troponin HS Sent. tl4 12:10 TSH Sent. tl4 12:13 Initial lab(s) drawn, by ca, sent to lab. Urine collected: clean catch specimen, jg11 cloudy. EKG done, by ED staff, reviewed by Piero Heard MD. Inserted saline lock: 20 gauge in right antecubital area, using aseptic technique. Blood collected. 12:15 Warm blanket given. jg11 12:23 XRAY Chest (1 view) In Process Unspecified. EDMS 13:45 Provided Education on: ed process, call boyer'. tl4 14:50 CT Head Brain wo Cont In Process Unspecified. EDMS 15:05 Diet: Patient given snack. Patient given water. Tolerated well Pt completed PO tl4 challenge without issues.. 15:12 Wilmar Yo MD is Referral Physician. [facility] 15:28 No provider procedures requiring assistance completed. IV discontinued, intact, tl4 bleeding controlled, No redness/swelling at site. Pressure dressing applied. Administered Medications: 12:53 Drug: NS 0.9% IV 500 ml IV at bolus once Route: IV; Rate: bolus; Site: right tl4 antecubital; Delivery: Primary tubing; 14:40 Follow up: Response: No adverse reaction; IV Status: Completed infusion; IV Intake: tl4 500ml 12:54 Drug: NS 0.9% IV 1000 ml IV at 125 ml/hr continuous Route: IV; Rate: 125 ml/hr; Site: tl4 right antecubital; Delivery: Dial-a-flow; 15:49 Follow up: Response: No adverse reaction; IV Status: Completed infusion; IV Intake: tl4 400ml Medication: 15:30 VIS not applicable for this client. tl4 Intake: 14:40 IV: 500ml; Total: 500ml. tl4 15:49 IV: 400ml; Total: 900ml. tl4 Outcome: 15:13 Discharge ordered by MD. portillo 15:28 Discharged to home ambulatory, with family, tl4 15:28 Condition: good 15:28 Discharge instructions given to patient, family, Instructed on discharge instructions, follow up and referral plans. Demonstrated understanding of instructions, follow-up care, 15:59 Patient left the ED. tl4 Signatures: Dispatcher [employer] EDPiero Mercado MD MD cha Prokisch, Amanda RN RN ap3 Carrol Regan RN RN ervin6 Rosa Alvarado mg5 Jase Yost RN RN tl4 Farhad Velasquez jg11
[2024-03-15 16:50] VITALS: BP 126/87; TEMP 98.1; O2SAT 97
--- NOTE | 2024-03-16 16:35 | EKG ---
Test Date: 2024-03-15 Test Time: 12:02:03 Scroll Assembler: ALP MEASUREMENT RESULTS: Intervals: Rate: 70 MO: QRSD: 112 QT: 384 QTc: 414 [place]: P: MO: QRS: -33 T: 38 INTERPRETIVE STATEMENTS: Atrial fibrillation Left axis deviation Right bundle branch block Abnormal ECG Compared to ECG 02/20/2024 10:41:50 Left ventricular hypertrophy no longer present Electronically Signed On 03-16-24 16:33:09 CDT by Negro Wise
== END 2024-03-15 15:59 | disposition home or self-care (01) ==
LOC: ER 11:44
DX: I48.19 Other persistent atrial fibrillation (principal); I63.9 Cerebral infarction, unspecified; E11.22 Type 2 diabetes mellitus with diabetic chronic kidney disease; I12.9 Hypertensive chronic kidney disease with stage 1 through stage 4 chronic kidney disease, or unspecified chronic kidney disease; N18.9 Chronic kidney disease, unspecified; R42 Dizziness and giddiness; Z79.01 Long term (current) use of anticoagulants
CPT/HCPCS: 96361; 93005; 85025; 81001; 80048; 36415; 83735; 85610; 80076; 84443; 84484; 83880; 70450; 71045; 96360; 99285; J7040; J7030

== ENCOUNTER 2025-02-16 16:06 | Emergency (ER) | payer OTHER ==
[2025-02-16 16:58] LABS: PTT, Activated Partial Thromb 36.6 SECONDS (27.2-37.4); Protime INR 1.43
[2025-02-16 16:59] LABS: Absolute Eosinophils 0.1 K/uL (0-0.5); Absolute Lymphocytes (CBC) 1.6 K/uL (0.7-4.9); Absolute Monocytes 0.6 K/uL (0.1-1.3); Absolute Neutrophil 3.5 K/uL (1.8-8.0); Basophils % 0.3 % (0-1.3); Eosinophils % 1.2 % (0-4.4); Hematocrit 42.4 % (39.6-49.0); Hemoglobin 14.7 g/dL (13.6-17.9); Lymphocytes % 28.1 % (15.3-44.8); MCH 31.9 pg (27.0-35.0); MCHC 34.7 g/dL (32.0-36.0); MCV 91.9 fL (80-100); MPV 8.8 fL (7.6-11.3); Monocytes % 10.3 % (3.3-12.3); Neutrophils % 60.1 % (41.7-73.7); Platelets 110 thou/uL (152-406); RBC Red Blood Cell Count 4.61 M/uL (4.33-5.43); Red Cell Distribution Width 14.5 % (12.1-15.2)
--- NOTE | 2025-02-16 17:00 | RAD REPORT ---
EXAM: CT Head Brain Wo Cont HISTORY: headache with prior stroke COMPARISON: 03/15/2024 TECHNIQUE: Multiple contiguous axial images were obtained for a CT of the brain without contrast. Sag ittal and coronal reformats were performed. One or more of the following dose reduction techniques were used: Automated exposure control, adjus tment of the mA and kV according to patient size, and iterative reconstruction. Unless otherwise specified, incidental findings do not require dedicated imaging follow-up. FINDINGS: No evidence of hydrocephalus, intracranial hemorrhage, or extra-axial fluid collection. Left subcortical opercular focus of encephalomalacia appears stable. Left parasagittal inferior cereb ellar encephalomalacia also appears stable. These findings suggest sequelae of remote ischemia. Other mild periventricular and deep white matter chronic microvascular ischemic changes present, stab le. The calvarium is intact. The visualized paranasal sinuses and mastoid air cells are essentially clear . IMPRESSION: No evidence of acute intracranial abnormality. Stable chronic findings as above.
[2025-02-16 17:08] LABS: Albumin 3.6 g/dL (3.4-5.0); Albumin/Globulin Ratio 1.2 (1.1-1.8); Anion Gap 9.3 mEq/L (5.0-15.0); Bilirubin Direct 0.2 mg/dL (0-0.2); Bilirubin Indirect, Calculated 0.4 mg/dL (0.2-0.8); Bilirubin Total 0.6 mg/dL (0.2-1.0); Magnesium 1.9 mg/dL (1.6-2.4); Potassium 4.3 mEq/L (3.5-5.1); Protein, Total 6.6 g/dL (6.4-8.2); Troponin High Sensitivity 11.7 pg/mL (<58.9)
--- NOTE | 2025-02-16 17:15 | RAD REPORT ---
EXAMINATION: CTA HEAD CLINICAL INDICATION: Male, 79 years old. headache with prior stroke TECHNIQUE: Axial CT images were obtained through the head after intravenous contrast utilizing angiog raphic protocol with 3D post-processing (maximum intensity projection images, volume rendered images and/or shaded surface rendered images). One or more of the following dose reduction technique s were used: Automated exposure control, adjustment of the mA and/or kV according to patient size, and/or iterative reconstruction. Unless otherwise specified, incidental findings do not require dedic ated imaging follow-up. COMPARISON: 02/19/2024. FINDINGS: ICA: The petrous, cavernous, and supraclinoid segments of the bilateral internal carotid arteries are normal. STEPHANIE: Anterior cerebral arteries are normal bilaterally. The anterior communicating artery is patent. MCA: Middle cerebral arteries are normal bilaterally. ELECTRIC FORK OPERATOR: Mildly progressive focal moderate to severe narrowing with limited irregularity of the left ELECTRIC FORK OPERATOR proximal P1 segment. See sagittal image 126/250 among others Posterior cerebral artery and its proximal branches are patent more distally. The right posterior cerebral artery and its proximal bran ches are patent. Vertebrobasilar: The vertebral arteries are patent. The basilar artery is normal in appearance. 3D images confirm these findings. IMPRESSION: Focal moderate to severe narrowing of the left ELECTRIC FORK OPERATOR proximal P1 segment. Appearance is mildly progress monroe since the prior exam. No other hemodynamically significant stenosis. No large vessel occlusion.
--- NOTE | 2025-02-16 17:16 | RAD REPORT ---
EXAMINATION: CT Neck Angio CLINICAL INDICATION: Male, 79 years old. [facility] headache with prior stroke Bed Name: 3 TECHNIQUE: Axial CT images were obtained from the aortic arch to the skull base after intravenous con trast utilizing angiographic protocol. Multiplanar reformats, as well as 3D post-processing (maximum intensity projection images, volume rendered images and/or shaded surface rendered images) w ere generated and reviewed. One or more of the following dose reduction techniques were used: Automated exposure control, adjustment of the mA and/or kV according to patient size, and/or iterativ e reconstruction. Unless otherwise specified, incidental findings do not require dedicated imaging follow-up. COMPARISON: 02/19/2024 FINDINGS: AORTA: The imaged aortic arch is normal. Normal three-vessel configuration of the arch. CCA: No artifact The common carotid arteries are patent and normal in caliber. ICA/ECA: Bilateral internal and external carotid arteries are patent, with mild to moderate bilateral calcific atherosclerotic plaque at the bulbs. There is no significant internal carotid artery stenosis. VERTEBRAL: The cervical vertebral arteries are patent to the skull base. Vertebral arteries are codom inant. SOFT TISSUE: No significant neck soft tissue abnormalities. The visualized lung apices are clear. 3D images confirm these findings. IMPRESSION: No significant flow abnormality of the neck vessels is identified. NASCET criteria used to quantify ICA stenosis, with the following grading scheme: Mild 0-49% stenosis Moderate 50-69% stenosis Severe 70-99% stenosis Reference: [place] Symptomatic Carotid Endarterectomy Trial Collaborators; Kami BALDERRAMA, Ev DW, Jhoana RB, et al. Beneficial effect of carotid endarterectomy in symptomatic patients with high-grade carotid stenosis. N Engl J Med. 1990 15;325(7):445-53.
--- NOTE | 2025-02-16 17:40 | RAD REPORT ---
EXAMINATION: ONE VIEW CHEST XR CLINICAL INDICATION: Male, 79 years old.,headache with prior stroke TECHNIQUE: Frontal chest projection is submitted. Examination is limited by patient positioning and t echnique. COMPARISON: 03/15/2024 FINDINGS: The lungs are well inflated and clear. No chronic interstitial changes bilaterally. Stable No pneumot horax or sizable effusion. The heart is normal in size. Mediastinal contours are unremarkable. IMPRESSION: No acute intrathoracic abnormalities.
--- NOTE | 2025-02-16 18:01 | ER ---
Nurse's Notes [facility] Name: Petar Mayes Age: 79 yrs Sex: Male : 1945 Arrival Date: 02/16/2025 Time: 16:06 Bed 3 Private MD: Diagnosis: Headache, confusion, both resolved Presentation: 02/16 16:07 Chief complaint: Spouse and/or significant other states: [facility]. upon getting home pt started presenting with intermittent confusion and left sided headache at 1510. 16:07 Coronavirus screen: At this time, the client does not indicate any symptoms associated [facility] with coronavirus-19. Ebola Screen: No symptoms or risks identified at this time. Initial Sepsis Screen: Does the patient meet any 2 criteria? No. Patient's initial sepsis screen is negative. Does the patient have a suspected source of infection? No. Patient's initial sepsis screen is negative. Risk Assessment: Do you want to hurt yourself or someone else? Patient reports no desire to harm self or others. Onset of symptoms was February 16, 2025 at 15:10. 16:07 Method Of Arrival: Ambulatory [facility] 16:07 Acuity: GENNARO 2 [facility] Triage Assessment: 16:07 Headache History: Denies prior headaches. [facility] Historical: - Allergies: 16:08 No Known Drug Allergies; ll1 - PMHx: 16:08 Diabetes - NIDDM; Hyperlipidemia; Hypertension; Hypothyroidism; Kidney stones; TIA; ll1 16:43 Atrial fibrillation; kc6 - PSHx: 16:43 aortic valve replacement; 6 - Immunization history:: Adult Immunizations up to date. - Infectious Disease History:: Denies. - Social history:: Smoking status: Patient denies any tobacco usage or history of. Screenin:07 [facility] ED Fall Risk Assessment (Adult) History of falling in the last 3 months, [facility] including since admission No falls in past 3 months (0 pts) Confusion or Disorientation No (0 pts) Intoxicated or Sedated No (0 pts) Impaired Gait No (0 pts) Mobility Assist Device Used No (0 pt) Altered Elimination No (0 pt) Score/Fall Risk Level 0 - 2 = Low Risk Oriented to surroundings, Maintained a safe environment. Abuse screen: Denies threats or abuse. Denies injuries from another. Nutritional screening: No deficits noted. Tuberculosis screening: No symptoms or risk factors identified. 16:07 VAN Screening: Arm Drift: Patient shows no arm weakness. Patient is VAN negative. kc6 Visual Disturbance: No visual disturbance noted. Aphasia: No aphasia noted. Neglect: No neglect noted. [place] Swallow Protocol Exclusion Criteria: Unable to remain alert for testing: No NPO for medical/surgical reason by provider order No Tracheostomy tube present No No thin liquids due to preexisting dysphagia/baseline modified diet thickened liquids No Exclusion Criteria Result: Proceed Brief Cognitive Screen What is your name? Normal, Where are you right now? Normal, What year is it? Normal. Oral Mechanism Examination Facial Symmetry: Normal, Motion: Normal, Lip Closure: Normal, Oral Mechanism Result: Normal. 3 oz Water Swallow Challenge: Pt able to drink all water without stopping, coughing, choking or throat clearing: Yes Result: PASS MD Notified: Vianca Kiser MD. Assessment: 16:07 General: Appears in no apparent distress. comfortable, well groomed, well developed, kc6 Behavior is calm, cooperative, appropriate for age. Neuro: Level of Consciousness is awake, alert, obeys commands, Oriented to person, place, time, situation, Appropriate for age Quill Buncher And Sorter are equal bilaterally Moves all extremities. Full function Gait is steady, Speech is normal, Facial symmetry appears normal, Facial symmetry: tongue is midline, Pupils are PERRLA, Intact Reports headache in left parietal area. Cardiovascular: Capillary refill < 3 seconds. Respiratory: Airway is patent Trachea midline Respiratory effort is even, unlabored, Respiratory pattern is regular, symmetrical. GI: No signs and/or symptoms were reported involving the gastrointestinal system. : No signs and/or symptoms were reported regarding the genitourinary system. EENT: No signs and/or symptoms were reported regarding the EENT system. Derm: No signs and/or symptoms reported regarding the dermatologic system. Skin is intact, is healthy with good turgor, Skin is pink, warm \T\ dry. Musculoskeletal: No signs and/or symptoms reported regarding the musculoskeletal system. Circulation, motion, and sensation intact. Range of motion: intact in all extremities. 16:16 Reassessment: code stroke called, pt to CT via stretcher with this RN. kc6 17:07 Reassessment: Patient appears in no apparent distress at this time. No changes from kc6 previously documented assessment. Patient and/or family updated on plan of care and expected duration. Pain level reassessed. Patient is alert, oriented x 3, equal unlabored respirations, skin warm/dry/pink. 18:07 Reassessment: Patient appears in no apparent distress at this time. No changes from [facility] previously documented assessment. Patient and/or family updated on plan of care and expected duration. Pain level reassessed. Patient is alert, oriented x 3, equal unlabored respirations, skin warm/dry/pink. Vital Signs: 16:07 BP 167 / 85; Pulse 70; Resp 17 S; Temp 98.5(O); Pulse Ox 100% on R/A; Weight 75.75 kg kc6 (M); Height 5 ft. 7 in. (R); 16:59 BP 152 / 79; Pulse 63; Resp 16 S; Pulse Ox 100% on R/A; kc6 18:10 BP 149 / 81; Pulse 66; Resp 17 S; Pulse Ox 100% on R/A; kc6 16:07 Body Mass Index 26.16 (75.75 kg, 170.18 cm) [facility] NIH Stroke Scale Scores: 16:07 NIHSS Score: 0 [facility] ED Course: 16:07 Patient arrived in ED. im 16:07 Patient has correct armband on for positive identification. Bed in low position. Call [facility] light in reach. Side rails up X2. Adult w/ patient. production support engineer on. Pulse ox on. NIBP on. Door closed. Noise minimized. Lights dimmed. Pillow given. Verbal reassurance given. 16:08 Saw Olvera, GARY is Primary Nurse. bp 16:08 Vianca Kiser MD is Attending Physician. sp3 16:08 Arm band placed on Patient placed in an exam room, on a stretcher. ll1 16:[address] via stretcher. kc6 16:23 CT Head Brain wo Cont In Process Unspecified. EDMS 16:24 Initial lab(s) drawn, by me, sent to lab. Inserted saline lock: 18 gauge in right [facility] antecubital area, using aseptic technique. Blood collected. Flushed with 10 mL NS. Patient maintains SpO2 saturation greater than 95% on room air. 16:37 CT Head Angio In Process Unspecified. EDMS 16:37 CT Neck Angio In Process Unspecified. EDMS 16:43 Triage completed. kc6 16:45 EKG done, by ED staff, reviewed by Vianca Kiser MD. kc6 16:55 Stroke CXR 1 View In Process Unspecified. EDMS 18:10 No provider procedures requiring assistance completed. IV discontinued, intact, kc6 bleeding controlled, No redness/swelling at site. Pressure dressing applied. Administered Medications: No medications were administered Medication: 18:11 VIS not applicable for this client. kc6 Outcome: 18:01 Discharge ordered by . sp3 18:11 Discharged to home ambulatory, with significant other, kc6 18:11 Condition: improved 18:11 Discharge instructions given to patient, significant other, Instructed on discharge instructions, follow up and referral plans. Demonstrated understanding of instructions, follow-up care, 18:11 Patient left the ED. kc6 NIH Stroke Scale - NIH Stroke Score Date: 02/16/2025 Time: 16:07 Total Score = 0 10. Dysarthria (speech clarity - read or repeat words) - 0(Normal) 11. Extinction and Inattention (visual/tactile/auditory/spatial/personal) - 0(No abnormality) 1a. Level of Consciousness (LOC) - 0(Alert) 1b. Level of Consciousness (LOC) (Month \T\ Age) - 0(Both) 1c. LOC Commands (Open \T\ Closes Eyes/Defense Attorney) - 0(Both) 2. Best Gaze (Lateral Gaze Paresis) - 0(Normal) 3. Visual Field Loss - 0(No visual loss) 4. Facial Palsy - 0(Normal) 5a. Left Arm: Motor (10-second hold) - 0(No drift) 5b. Right Arm: Motor (10-second hold) - 0(No drift) 6a. Left Leg: Motor (5-second hold - always test supine) - 0(No drift) 6b. Right Leg: Motor (5-second hold - always test supine) - 0(No drift) 7. Limb Ataxia (finger/nose \T\ heel/neri - test with eyes open) - 0(Absent) 8. Sensory Loss (pinprick arms/legs/face) - 0(Normal) 9. Best Language: Aphasia (description/naming/reading) - 0(No aphasia) Initials: kc6 Signatures: Dispatcher [employer] EDMS Saw Olvera RN RN bp Cesilia Conti RN RN ll1 Vianca Kiser MD MD sp3 Carrol Regan, RN RN kc6 Nuris Aragon
--- NOTE | 2025-02-16 18:01 | EDPHYS ---
Physician Documentation [facility] Name: Petar Mayes Age: 79 yrs Sex: Male : 1945 Arrival Date: 02/16/2025 Time: 16:06 Bed 3 Private MD: ED Physician Vianca Kiser HPI: 02/16 16:30 This 79 yrs old Male presents to ER via Unassigned with complaints of Confused, sp3 Headache. 16:30 79-year-old male with history of diabetes, hypothyroidism, hypertension, prior TIA/CVA, sp3 currently on Eliquis after aortic valve replacement presents to the ED with chief complaint confusion which is resolved and ongoing headache for the last 2 hours. Significant other states that he was confused after he got home from the [facility] after routine evaluation of his hearing. Since then his headache has been persistent on the left frontal side and he has been confused as to the exact chain of events in time. No reports of trauma, slurred speech, focal weakness, numbness or tingling or any other type of symptoms reported.. Historical: - Allergies: 16:08 No Known Drug Allergies; ll1 - PMHx: 16:08 Diabetes - NIDDM; Hyperlipidemia; Hypertension; Hypothyroidism; Kidney stones; TIA; ll1 16:43 Atrial fibrillation; kc6 - PSHx: 16:43 aortic valve replacement; kc6 - Immunization history:: Adult Immunizations up to date. - Infectious Disease History:: Denies. - Social history:: Smoking status: Patient denies any tobacco usage or history of. ROS: 16:32 Constitutional: Negative for fever, chills, and weight loss, Eyes: Negative for injury, sp3 pain, redness, and discharge, ENT: Negative for injury, pain, and discharge, Neck: Negative for injury, pain, and swelling, Cardiovascular: Negative for chest pain, palpitations, and edema, Respiratory: Negative for shortness of breath, cough, wheezing, and pleuritic chest pain, Abdomen/GI: Negative for abdominal pain, nausea, vomiting, diarrhea, and constipation, Back: Negative for injury and pain, MS/Extremity: Negative for injury and deformity, Skin: Negative for injury, rash, and discoloration, Psych: Negative for depression, anxiety, suicide ideation, homicidal ideation, and hallucinations, Allergy/Immunology: Negative for hives, rash, and allergies, Endocrine: Negative for neck swelling, polydipsia, polyuria, polyphagia, and marked weight changes, Hematologic/Lymphatic: Negative for swollen nodes, abnormal bleeding, and unusual bruising, 16:32 All other systems are negative, Exam: 16:38 Constitutional: This is a well developed, well nourished patient who is awake, alert, sp3 and in no acute distress. Head/Face: Normocephalic, atraumatic. Eyes: Pupils equal round and reactive to light, extra-ocular motions intact. Lids and lashes normal. Conjunctiva and sclera are non-icteric and not injected. Cornea within normal limits. Periorbital areas with no swelling, redness, or edema. ENT: Nares patent. No nasal discharge, no septal abnormalities noted. External auditory canals are clear. Oropharynx with no redness, swelling, or masses, exudates, or evidence of obstruction, uvula midline. Mucous membranes moist. Neck: Trachea midline, no thyromegaly or masses palpated, and no cervical lymphadenopathy. Supple, full range of motion without nuchal rigidity, or vertebral point tenderness. No Meningismus. Chest/axilla: Normal chest wall appearance and motion. Nontender with no deformity. No lesions are appreciated. Cardiovascular: Regular rate and rhythm with a normal S1 and S2. No gallops, murmurs, or rubs. Normal PMI, no JVD. No pulse deficits. Respiratory: Lungs have equal breath sounds bilaterally, clear to auscultation and percussion. No rales, rhonchi or wheezes noted. No increased work of breathing, no retractions or nasal flaring. Abdomen/GI: Soft, non-tender, with normal bowel sounds. No distension or tympany. No guarding or rebound. No evidence of tenderness throughout. Back: No spinal tenderness. No costovertebral tenderness. Full range of motion. Skin: Warm, dry with normal turgor. Normal color with no rashes, no lesions, and no evidence of cellulitis. MS/ Extremity: Pulses equal, no cyanosis. Neurovascular intact. Full, normal range of motion. Neuro: Awake and alert, GCS 15, oriented to person, place, time, and situation. Cranial nerves II-XII grossly intact. Motor strength 5/5 in all extremities. Sensory grossly intact. Cerebellar exam normal. Normal gait. Psych: Awake, alert, with orientation to person, place and time. Behavior, mood, and affect are within normal limits. 17:52 ECG was reviewed by the Attending Physician. EKG demonstrates atrial fibrillation at 58 sp3 bpm with normal intervals with QTc of 424, right bundle branch block and nonspecific diffuse ST/T changes without evidence of acute ischemia. Vital Signs: 16:07 BP 167 / 85; Pulse 70; Resp 17 S; Temp 98.5(O); Pulse Ox 100% on R/A; Weight 75.75 kg kc6 (M); Height 5 ft. 7 in. (R); 16:59 BP 152 / 79; Pulse 63; Resp 16 S; Pulse Ox 100% on R/A; kc6 18:10 BP 149 / 81; Pulse 66; Resp 17 S; Pulse Ox 100% on R/A; kc6 16:07 Body Mass Index 26.16 (75.75 kg, 170.18 cm) kc6 NIH Stroke Scale Scores: 16:07 NIHSS Score: 0 kc6 MDM: 16:13 Medical Screening Exam initiated sp3 16:38 Data reviewed: vital signs, nurses notes, old medical records, lab test result(s), EKG, sp3 radiologic studies. ED course: 79-year-old male with left-sided headache and confusion with confusion aspect resolved. Vital signs within normal limits. Differential diagnosis includes generalized headache versus headache with aura versus TIA versus other intracranial abnormality versus viral illness versus other. Workup will include CT scan of the head, general labs, EKG and CTA of arterial system. Disposition pending workup and patient course.. 17:59 ED course: Full workup negative. We will see if it is a patient home at this time. The sp3 pica reading from the radiologist was discussed with radiology and the vessels patent and would not cause the symptoms he is having. His headache is improved and he declines any medication at this time. He wants to be discharged. Neurological exam fully normal and patient is not confused at all. Will safely let patient go home.. 02/16 16:15 Order name: Basic Metabolic Panel; Complete Time: 17:10 sp3 02/16 16:15 Order name: CBC with Diff; Complete Time: 17:10 sp3 02/16 16:15 Order name: Hepatic Function; Complete Time: 17:10 sp3 02/16 16:15 Order name: High Sensitivity Troponin; Complete Time: 17:10 sp3 02/16 16:15 Order name: Magnesium; Complete Time: 17:10 sp3 02/16 16:15 Order name: Protime (+inr); Complete Time: 17:10 sp3 02/16 16:15 Order name: Ptt, Activated; Complete Time: 17:10 sp3 02/16 16:51 Order name: Glucose, Ancillary Testing; Complete Time: 17:10 EDMS 02/16 16:15 Order name: CT Head Angio; Complete Time: 17:44 sp3 02/16 16:15 Order name: CT Neck Angio; Complete Time: 17:44 sp3 02/16 16:15 Order name: Stroke CXR 1 View; Complete Time: 17:44 sp3 02/16 16:15 Order name: CT Head Brain wo Cont; Complete Time: 17:10 sp3 02/16 16:15 Order name: Cardiac monitoring; Complete Time: 16:41 sp3 02/16 16:15 Order name: EKG - Nurse/Tech; Complete Time: 16:41 sp3 02/16 16:15 Order name: IV Saline Lock; Complete Time: 16:41 sp3 02/16 16:15 Order name: Labs collected and sent; Complete Time: 16:41 sp3 02/16 16:15 Order name: NPO; Complete Time: 16:41 sp3 02/16 16:15 Order name: O2 Per Protocol; Complete Time: 16:41 sp3 02/16 16:15 Order name: O2 Sat Monitoring; Complete Time: 16:41 sp3 Administered Medications: No medications were administered Disposition Summary: 02/16/25 18:01 Discharge Ordered Notes: Location: Home sp3 Condition: Stable sp3 Diagnosis - Headache, confusion, both resolved sp3 Followup: sp3 - With: Private Physician - When: Upon discharge from the Emergency Department - Reason: Continuance of care Discharge Instructions: - Discharge Summary Sheet sp3 - General Headache Without Cause sp3 Forms: - Medication Reconciliation Form sp3 - Antibiotic Education sp3 - Prescription Opioid Use sp3 - Patient Portal Instructions sp3 - Leadership Thank You Letter sp3 NIH Stroke Scale - NIH Stroke Score Date: 02/16/2025 Time: 16:07 Total Score = 0 10. Dysarthria (speech clarity - read or repeat words) - 0(Normal) 11. Extinction and Inattention (visual/tactile/auditory/spatial/personal) - 0(No abnormality) 1a. Level of Consciousness (LOC) - 0(Alert) 1b. Level of Consciousness (LOC) (Month \T\ Age) - 0(Both) 1c. LOC Commands (Open \T\ Closes Eyes/Breastfeeding Peer Counselor) - 0(Both) 2. Best Gaze (Lateral Gaze Paresis) - 0(Normal) 3. Visual Field Loss - 0(No visual loss) 4. Facial Palsy - 0(Normal) 5a. Left Arm: Motor (10-second hold) - 0(No drift) 5b. Right Arm: Motor (10-second hold) - 0(No drift) 6a. Left Leg: Motor (5-second hold - always test supine) - 0(No drift) 6b. Right Leg: Motor (5-second hold - always test supine) - 0(No drift) 7. Limb Ataxia (finger/nose \T\ heel/neri - test with eyes open) - 0(Absent) 8. Sensory Loss (pinprick arms/legs/face) - 0(Normal) 9. Best Language: Aphasia (description/naming/reading) - 0(No aphasia) Initials: kc6 Signatures: Dispatcher [employer] EDMS Cesilia Conti RN RN ll1 Vianca Kiser MD MD sp3 Carrol Regan RN RN kc6 Corrections: (The following items were deleted from the chart) 16:16 16:15 BASIC METABOLIC PANEL+C.LAB.BRZ ordered. EDMS EDMS 16:16 16:15 CBC+H.LAB.BRZ ordered. EDMS EDMS 16:16 16:15 HEPATIC FUNCTION+C.LAB.BRZ ordered. EDMS EDMS 16:16 16:15 Troponin High Sensitivity+C.LAB.BRZ ordered. EDMS EDMS 16:16 16:15 MAGNESIUM+C.LAB.BRZ ordered. EDMS EDMS 16:16 16:15 PROTIME (+INR)+COAG.LAB.BRZ ordered. EDMS EDMS 16:16 16:15 PTT, ACTIVATED+COAG.LAB.BRZ ordered. EDMS EDMS 16:16 16:16 Head Angio+CT.RAD.BRZ ordered. EDMS EDMS 16:16 16:16 Neck Angio+CT.RAD.BRZ ordered. EDMS EDMS :16 16:16 Chest Single View+RAD.RAD.BRZ ordered. EDMS EDMS :16 16:16 Head Brain Wo Cont+CT.RAD.BRZ ordered. EDMS EDMS
[2025-02-16 19:04] VITALS: TEMP 98.5; O2SAT 100
[2025-02-16 19:10] VITALS: BP 149/81
--- NOTE | 2025-02-20 12:10 | EKG ---
Test Date: 2025-02-16 Test Time: 16:51:09 Shuttle Fixer: HANNA MEASUREMENT RESULTS: Intervals: Rate: 58 AL: QRSD: 112 QT: 432 QTc: 424 [place]: P: AL: QRS: -38 T: 37 INTERPRETIVE STATEMENTS: Atrial fibrillation with slow ventricular response Left axis deviation Low voltage QRS Right bundle branch block Inferior infarct, age undetermined Abnormal ECG Compared to ECG 03/15/2024 12:02:03 Low QRS voltage now present Myocardial infarct finding now present Electronically Signed On 02-20-25 12:07:49 CDT by Negro Wise
== END 2025-02-16 18:11 | disposition home or self-care (01) ==
LOC: ER 16:06
DX: R51.9 Headache, unspecified (principal); R41.0 Disorientation, unspecified; I10 Essential (primary) hypertension; E11.9 Type 2 diabetes mellitus without complications; I48.91 Unspecified atrial fibrillation; Z95.2 Presence of prosthetic heart valve; Z79.01 Long term (current) use of anticoagulants
CPT/HCPCS: 93005; 85025; 80048; 36415; 83735; 85610; 82565; 82947; 80076; 85730; 84484; 70450; 70496; 70498; 71045; 99285; Q9967